=== PATIENT | female | born 1965 | race Caucasian/White ===

== ENCOUNTER 2018-08-09 07:45 | Inpatient (IN) ==
[2018-08-09] MEDS ORDERED: IOPAMIDOL 100 ML BOTTLE IV ONE (07:46)
[2018-08-09] MEDS ORDERED: 0.9 % SODIUM CHLORIDE 1,000 ML IV ONE (08:07)
--- NOTE | 2018-08-09 08:17 | Emergency Department Note ---
Abdominal Pain HPI - General Chief Complaint: Abdominal Pain Stated Complaint: right lower abd pain. Time Seen by Provider: 08/09/18 08:04 Source: patient Mode of arrival: ambulatory Limitations: no limitations - History of Present Illness HPI Narrative: 53-year-old female complains of 3 days of right lower quadrant pain. She has irregular bowel movements but she had a normal bowel movements morning. No difficulty urinating or with shortness of breath. No fever. Pain is severe at times and worse when she walks. Even when she goes over a bump in the car it is worse - Related Data Home Medications Medication Instructions Recorded Confirmed No Known Home Meds 08/09/18 08/09/18 Allergies Allergy/AdvReac Type Severity Reaction Status Date / Time No Known Drug Allergies Allergy Verified 08/09/18 07:48 Review of Systems All systems ED: reviewed and negative except as stated. Abdominal Pain PMH - Past Medical History Attestation: Yes: The following information was validated with the patient. [facility] Narrative: Medical History (Last Reviewed 06/11/18 @ 11:40 by Katrina Willis PA-C) Acute frontal sinusitis (Acute) Acute bronchitis (Acute) Polyarthralgia (Acute) Myalgia (Acute) MICHAEL positive (Acute) Vitamin B12 deficiency (Chronic) Osteoarthritis (Chronic) Morbid obesity (Acute) Gastroesophageal reflux (Chronic) Dysmetabolic syndrome X (Chronic) Benign neoplasm of colon (Chronic) Past Surgical History (Last Reviewed 06/11/18 @ 11:40 by Katrina Willis PA-C) Hx of plastic surgery (Acute) History of loop electrical excision procedure (LEEP) (Acute) Hx of gastric bypass (Acute) Hx of section (Acute) Hx of breast augmentation (Acute) Family History (Last Reviewed 06/11/18 @ 11:40 by Katrina Willis PA-C) none listed Asthma Malignant neoplasm of colon father History of coronary artery bypass surgery Diabetes mellitus mother Diabetes mellitus Malignant neoplasm of pancreas Medical history: Reports: GERD Surgical history ED: Reports: bariatric surgery - Social History Smoking status: Never smoker Physical Exam Normocephalic atraumatic. Conjunctive are clear sclerae nonicteric. No nasal discharge or congestion. Oropharynx pink and moist. Neck is supple without lymphadenopathy or thyromegaly. Heart is regular rate and rhythm no murmur appreciated. Lungs are clear to auscultation bilaterally without wheezes rales rhonchi or respiratory distress. Abdomen is soft nontender nondistended except for right lower quadrant with point tenderness at McBurney's point. Alert oriented Limitations: no limitations Course Vital Signs Temperature 97.9 F 08/09/18 07:45 Pulse Rate 109 H 08/09/18 07:45 Respiratory Rate 20 08/09/18 07:45 Blood Pressure 121/81 08/09/18 07:45 Pulse Oximetry (%) 99 08/09/18 07:45 Temperature 97.9 F 08/09/18 07:45 Pulse Rate 109 H 08/09/18 07:45 Respiratory Rate 20 08/09/18 07:45 Blood Pressure 121/81 08/09/18 07:45 Pulse Oximetry (%) 99 08/09/18 07:45 Abdominal Pain - Lab Data Result diagrams: 08/09/18 08:06 08/09/18 08:06 Lab Results 08/09/18 Range/Units 08:06 Band Neutrophils % Not Reportable Disposition Pt seen by VBA DEVELOPER/PA only: No Summary: Patient seen and examined workup started with labs and CT scan of the abdomen and pelvis. Suspect appendicitis Patient will be checked out to Dr. guardado at shift change for further evaluation and care and final disposition Disposition: Still a Patient Condition: Fair Referrals: Rufus Arellano MD [Primary Care Provider] -
[2018-08-09 08:43] LABS: Mean Cell Volume 84.6 fL (80.0-100.0); Mean Corpuscular HGB Conc 31.8 g/dL (31.0-36.0); Platelet Count 271 K/mcL (140-440); RBC 5.02 M/mcL (4.00-5.20); Red Cell Distribution Width 19.4 % (11.5-14.5)
[2018-08-09 08:55] LABS: Appearance,Urine HAZY; Bacteria,Urine 0 /hpf (0); Bilirubin,Urine NEG (NEG); Color,Urine YELLOW; Glucose,Urine (UA) NEGATIVE (NEG); Leukocyte Esterase,Urine NEG /uL (NEG); Mucus,Urine MOD /hpf (0); Protein,Urine NEG (NEG); Specific Gravity,Urine 1.018 (1.000-1.035); Urine Blood NEG mg/dL (<0.03); Urine Hyaline Cast 77 /lpf (0-2); Urine RBC 1 /hpf (0-1); Urine Squamous Epithelial Cell 3 /hpf (0-4); Urine WBC 2 /hpf (0-4); Urobilinogen,Urine NEG (NEG)
[2018-08-09 09:05] LABS: ALT/SGPT 15 U/l (0-40); Albumin/Globulin Ratio 1.2 (1.0-2.3); Alkaline Phosphatase 101 U/L (39-117); Blood Urea Nitrogen 6 mg/dl (6-20)
[2018-08-09 09:30] LABS: Anisocytosis 1+ (NONE SEEN); Eosinophils % (Manual) 2 % (0-7); Lymphocytes % 15 % (15-49); Monocytes % (Manual) 9 % (1-12); Platelet Estimate NORMAL (NORMAL); RBC Morphology ABNORM (NORMAL); Segmented Neutrophils % 74 % (38-78)
[2018-08-09] MEDS ORDERED: HYDROmorphone 2 MG/ML VIAL IV PRN ×2 (09:42→15:55)
[2018-08-09] MEDS ORDERED: ONDANSETRON 4 MG/2 ML VIAL IV ONE ×2 (09:42→13:35)
--- NOTE | 2018-08-09 09:54 | Cat Scan Report ---
CLINICAL INFORMATION: Right lower quadrant pain COMPARISON: Previous examination dated 01/16/2005 TECHNIQUE: Axial images were obtained through the abdomen and pelvis. Sagittally and coronally reformatted images. 90 mL contrast material injected intravenously. Oral contrast material was not given FINDINGS: The appendix is enlarged and measures approximately 17 mm in cross-sectional diameter. There is a stone at the base of the appendix which measures 13 mm. There is a distal appendicolith which measures 11 mm. There is periappendiceal inflammatory change and mild fluid. There is no extraluminal gas. There is no focal abscess. There is no significant fluid within the pelvic cul-de-sac. Appearance is consistent with appendicitis, no definite CT signs of ruptured appendix. Lung bases are negative. No parenchymal infiltrate or mass. No pleural fluid. No pericardial fluid. There is a small hiatal hernia. There are findings consistent with previous hiatal hernia surgery. Patient has undergone previous Destinee-en-Y gastric bypass procedure. There is no mechanical obstruction. No abscess. Liver is negative. No focal intrahepatic mass. Liver contour is smooth. There is no ascites. There are surgical clips in the gallbladder fossa. No dilated bile ducts. Negative pancreas. No pancreatic mass. No peripancreatic abnormality. Negative spleen. There is no splenomegaly. Normal enhancement of splenic and portal veins. Negative adrenal glands. Kidneys are negative. No solid or cystic mass. No hydronephrosis. There is no mechanical small bowel obstruction. There is mild mesenteric adenopathy. There is also mild mesenteric edema centered in the right lower quadrant. Uterus is present. No adnexal mass. No free pelvic fluid. Abdominal aorta is negative. No abdominal aortic aneurysm. Multilevel degenerative disc disease. Severe degenerative disc disease at L3-4. Sacrum and pelvis are negative. Hips are negative. No fracture. IMPRESSION: 1. Acute appendicitis. There is appendiceal dilatation and two appendicoliths. There is periappendiceal inflammatory change. No extraluminal gas or focal abscess. 2. Previous Destinee-en-Y gastric bypass procedure. The exam was performed using radiation dose optimization techniques including, but not limited to, automated exposure control, adjustment of the mA and/or kV according to patient size and use of iterative reconstruction technique. Interpreted and Authenticated by: Sivakumar Georges 08/09/18
[2018-08-09] MEDS ORDERED: PIPERACILLIN SODIUM/TAZOBACTAM 3.375 GM in DEXTROSE 5% IN WATER 50 ML IV ONE (09:57)
--- NOTE | 2018-08-09 09:57 | Emergency Department Note ---
Abdominal Pain HPI - General Chief Complaint: Abdominal Pain Stated Complaint: right lower abd pain. Time Seen by Provider: 08/09/18 08:04 Source: patient Mode of arrival: ambulatory Limitations: no limitations - Related Data Home Medications Medication Instructions Recorded Confirmed No Known Home Meds 08/09/18 08/09/18 Allergies Allergy/AdvReac Type Severity Reaction Status Date / Time No Known Drug Allergies Allergy Verified 08/09/18 07:48 Abdominal Pain PMH - Past Medical History Medical history: Reports: GERD - Social History Smoking status: Never smoker Physical Exam Limitations: no limitations Course Vital Signs Temperature 97.9 F 08/09/18 07:45 Pulse Rate 109 H 08/09/18 07:45 Respiratory Rate 20 08/09/18 07:45 Blood Pressure 121/81 08/09/18 07:45 Pulse Oximetry (%) 99 08/09/18 07:45 Temperature 97.9 F 08/09/18 07:45 Pulse Rate 93 H 08/09/18 08:59 Respiratory Rate 20 08/09/18 08:59 Blood Pressure 123/75 08/09/18 09:02 Pulse Oximetry (%) 98 08/09/18 08:59 Abdominal Pain - MDM Narrative Medical decision making narrative: CT scan shows appendicitis without rupture. We will discussed the case with Dr. Stephen for admission. - Lab Data Lab results reviewed: Yes I reviewed the patient's lab results. Result diagrams: 08/09/18 08:06 08/09/18 08:06 Lab Results 08/09/18 08/09/18 08/09/18 Range/Units 08:06 08:06 08:06 WBC 8.4 (4.5-11.0) K/mcL RBC 5.02 (4.00-5.20) M/mcL Hgb 13.5 (12.0-15.0) g/dL Hct 42.5 (36.0-48.0) % MCV 84.6 (80.0-100.0) fL MCH 26.9 (26.0-34.0) pg MCHC 31.8 (31.0-36.0) g/dL RDW 19.4 H (11.5-14.5) % Plt Count 271 (140-440) K/mcL MPV 7.9 (7.4-10.4) fL Total Counted 100 Seg Neutrophils % 74 (38-78) % Band Neutrophils % Not Reportable Lymphocytes % 15 (15-49) % Monocytes % (Manual) 9 (1-12) % Eosinophils % (Manual) 2 (0-7) % Platelet Estimate Normal (NORMAL) RBC Morphology Abnorm A (NORMAL) Polychromasia 1+ A (NONE SEEN) Anisocytosis 1+ A (NONE SEEN) VBG Lactic Acid 1.5 (0.5-2.0) mmol/L Sodium 141 (133-145) mmol/L Potassium 4.0 (3.3-5.1) mmol/L Chloride 102 (96-108) mmol/L Carbon Dioxide 24 (22-30) mmol/L Anion Gap 15.0 (8-16) BUN 6 (6-20) mg/dl Creatinine 0.8 (0.6-1.1) mg/dl GFR Calculation 84 Glucose 98 (70-105) mg/dL Calcium 9.2 (8.6-10.4) mg/dl Total Bilirubin 0.4 (0.0-1.0) mg/dL AST 15 (0-37) U/l ALT 15 (0-40) U/l Alkaline Phosphatase 101 (39-117) U/L Total Protein 7.4 (5.9-8.4) gm/dL Albumin 4.0 (3.2-5.2) gm/dL Globulin 3.4 (2.2-3.7) gm/dL Albumin/Globulin Ratio 1.2 (1.0-2.3) Urine Color Urine Appearance Urine pH (5.0-9.0) Ur Specific [place] (1.000-1.035) Urine Protein (NEG) mg/dL Urine Glucose (UA) (NEG) mg/dL Urine Ketones (NEG) mg/dL Urine Occult Blood (<0.03) mg/dL Urine Nitrate (NEG) Urine Bilirubin (NEG) mg/dL Urine Urobilinogen (NEG) mg/dL Ur Leukocyte Esterase (NEG) /uL Urine RBC (0-1) /hpf Urine WBC (0-4) /hpf Ur Squamous Epith Cells (0-4) /hpf Urine Bacteria (0) /hpf Hyaline Casts (0-2) /lpf Urine Mucus (0) /hpf Ur Culture Indicated? 08/09/18 Range/Units 08:06 WBC (4.5-11.0) K/mcL RBC (4.00-5.20) M/mcL Hgb (12.0-15.0) g/dL Hct (36.0-48.0) % MCV (80.0-100.0) fL MCH (26.0-34.0) pg MCHC (31.0-36.0) g/dL RDW (11.5-14.5) % Plt Count (140-440) K/mcL MPV (7.4-10.4) fL Total Counted Seg Neutrophils % (38-78) % Band Neutrophils % Lymphocytes % (15-49) % Monocytes % (Manual) (1-12) % Eosinophils % (Manual) (0-7) % Platelet Estimate (NORMAL) RBC Morphology (NORMAL) Polychromasia (NONE SEEN) Anisocytosis (NONE SEEN) VBG Lactic Acid (0.5-2.0) mmol/L Sodium (133-145) mmol/L Potassium (3.3-5.1) mmol/L Chloride (96-108) mmol/L Carbon Dioxide (22-30) mmol/L Anion Gap (8-16) BUN (6-20) mg/dl Creatinine (0.6-1.1) mg/dl GFR Calculation Glucose (70-105) mg/dL Calcium (8.6-10.4) mg/dl Total Bilirubin (0.0-1.0) mg/dL AST (0-37) U/l ALT (0-40) U/l Alkaline Phosphatase (39-117) U/L Total Protein (5.9-8.4) gm/dL Albumin (3.2-5.2) gm/dL Globulin (2.2-3.7) gm/dL Albumin/Globulin Ratio (1.0-2.3) Urine Color Yellow Urine Appearance Hazy Urine pH 6.0 (5.0-9.0) Ur Specific [place] 1.018 (1.000-1.035) Urine Protein Neg (NEG) mg/dL Urine Glucose (UA) Negative (NEG) mg/dL Urine Ketones 20 A (NEG) mg/dL Urine Occult Blood Neg (<0.03) mg/dL Urine Nitrate Neg (NEG) Urine Bilirubin Neg (NEG) mg/dL Urine Urobilinogen Neg (NEG) mg/dL Ur Leukocyte Esterase Neg (NEG) /uL Urine RBC 1 (0-1) /hpf Urine WBC 2 (0-4) /hpf Ur Squamous Epith Cells 3 (0-4) /hpf Urine Bacteria 0 (0) /hpf Hyaline Casts 77 H (0-2) /lpf Urine Mucus Mod (0) /hpf Ur Culture Indicated? No - Radiology Data Radiology results reviewed: Yes I reviewed the patient's radiology results. Disposition Pt seen by OIL DISPENSER/PA only: No Clinical Impression: Acute appendicitis Disposition: Xfer As Outpt/Obs ([facility]) Condition: Good Referrals: Rufus Arellano MD [Primary Care Provider] - Time of Disposition: 09:57
[2018-08-09] MEDS ORDERED: SCOPOLAMINE 1 PATCH PATCH TOPICAL ONE (10:16)
--- NOTE | 2018-08-09 12:18 | General Surg History&Physical ---
History of Present Illness Patient information: Note initiated : 08/09/18 at 12:16 pm Service Date, if different from initiated Date: [] Patient: Marie Arredondo a 53 y/o F admitted on 08/09/18 for Right Lower Abd Pain.. Chief Complaint: [] HPI: Ms. Arredondo is a 53 year old F admitted with right lower quadrant pain. The p atient had pain in the right lower quadrant that started on Friday. It persisted throughout yesterday and increased in severity. She was seen in the emergency room today and was noted to have leukocytosis and CT evidence of acute appendicitis with 2 appendicoliths. Patient is counseled for laparoscopic appendectomy and it will be done later today Review of Systems - Constitutional headache(s), snoring, weakness, weight loss - EENT Nose, mouth and throat: dizziness, headache(s), post-nasal drip, sinus pain, sinus pressure - Cardiovascular no chest pain with activity, no dyspnea on exertion, no palpatations, no rapid heart rate, no syncope - Respiratory cough - Gastrointestinal abdominal pain, heartburn, nausea - Genitourinary Genitourinary: no nocturia, no urinary frequency, no urinary incontinence - Musculoskeletal back pain, neck pain, stiffness - Integumentary no pruritus, no rash - Neurological headache(s), tingling, weakness - Psychiatric no anxiety, no depression - Endocrine no excessive sweating, no palpitations - Hematologic/Lymphatic no easy bleeding, no easy bruising, no lymphadenopathy - Allergic/Immunologic no throat swelling, no wheezing, no lip swelling Past History Past medical history: GERD Chronic sinusitis Inflammatory arthritis Past surgical history: Abdominoplasty with bilateral reduction mammoplasty and liposuction Gastric bypass 2004 Cholecystectomy Left shoulder surgery Past family history: Colon cancer Diabetes mellitus Coronary artery disease Diabetes mellitus Pancreatic cancer Past social history: Never smoker Does not drink alcohol Does not use drugs Medications and Allergies Home Medications Medication Instructions Recorded Confirmed Type No Known Home Meds 08/09/18 08/09/18 History Allergies Allergy/AdvReac Type Severity Reaction Status Date / Time No Known Drug Allergies Allergy Verified 08/09/18 07:48 Exam Temp Pulse Resp BP Pulse Ox 98 F 95 H 18 111/70 97 08/09/18 11:37 08/09/18 11:01 08/09/18 11:37 08/09/18 11:37 08/09/18 11:37 - General physical appearance well developed, well nourished, no distress - Eyes PERRL, normal ocular movement - ENT normal pinna, normal nares, normal mucosa, no hearing loss, no congestion - Head Head exam IM: Present: atraumatic, normocephalic - Neck no masses, no bruits, trachea midline, no lymphadenopathy, no venous distension - Cardiovascular Cardiovascular exam IM: Present: normal rate and rhythm, RRR, +S1, +S2. Absent: JVD, tachycardia - Respiratory normal expansion, normal respiratory effort, clear to auscultation - Abdomen Abdomen: Present: soft, non tender, bowel sounds, surgical scars (long midline scar; Extended lower suprapubic scar; tenderness with guarding right lower quadrant), wound Hernia: Present: none - Genitourinary Present: normal external genitalia - Integumentary Present: no rash, no growths, no abnormal pigmentation - Neurologic Present: normal coordination, normal sensation - Musculoskeletal Present: normal gait, normal posture - Psychiatric Present: oriented to time, oriented to person, oriented to place, speech is normal, memory intact Assessment and Plan (1) Acute appendicitis Patient is counseled for laparoscopic appendectomy which will be done later today Status: Acute (2) Maxillary sinusitis Status: Acute Qualifiers: Chronicity: acute Recurrence: non-recurrent Qualified Code(s): J01.00 - Acute maxillary sinusitis, unspecified (3) Polyarthralgia Status: Acute
--- NOTE | 2018-08-09 13:10 | XRay Report ---
CLINICAL INFORMATION: Appendicitis. Preoperative chest x-ray. TECHNIQUE: AP portable semiupright COMPARISON: Previous examination dated 07/07/2013 FINDINGS: Lungs are negative. No foraminal infiltrate or mass. Heart size and vascularity are normal. Aylin and mediastinum are negative IMPRESSION: Negative AP chest x-ray Interpreted and Authenticated by: Sivakumar Georges 08/09/18
[2018-08-09] MEDS ORDERED: ROCURONIUM 10 MG/ML ML IV ONE (13:35)
[2018-08-09] MEDS ORDERED: KETAMINE 100 MG/ML ML IV ONE (13:35)
[2018-08-09] MEDS ORDERED: diphenhydrAMINE 50 MG/ML VIAL IV ONE (13:35)
[2018-08-09] MEDS ORDERED: GLYCOPYRROLATE 0.2 MG/ML VIAL IV ONE (13:35)
[2018-08-09] MEDS ORDERED: ESMOLOL 100 MG/10 ML VIAL IV ONE (13:35)
[2018-08-09] MEDS ORDERED: HYDROmorphone 2 MG/ML VIAL IV ONE (13:35)
[2018-08-09] MEDS ORDERED: MIDAZOLAM 5 MG/5 ML VIAL IV ONE (13:35)
[2018-08-09] MEDS ORDERED: SUGAMMADEX SODIUM 200 MG/2 ML VIAL IV ONE (13:35)
[2018-08-09] MEDS ORDERED: LIDOCAINE HCL/PF 100 MG/5 ML SYRINGE IV ONE (13:35)
[2018-08-09] MEDS ORDERED: DEXAMETHASONE 10 MG/ML VIAL IV ONE (13:35)
[2018-08-09] MEDS ORDERED: SUCCINYLCHOLINE 20 MG/ML ML IV ONE (13:35)
[2018-08-09] MEDS ORDERED: fentaNYL 250 MCG/5 ML VIAL IV ONE (13:35)
[2018-08-09] MEDS ORDERED: FAMOTIDINE/PF 20 MG/2 ML VIAL IV ONE (13:35)
[2018-08-09] MEDS ORDERED: PROPOFOL 200 MG/20 ML VIAL IV ONE (13:35)
--- NOTE | 2018-08-09 15:47 | Brief Operative Note ---
Date of procedure: 08/09/18 Pre-op diagnosis: acute appendicitis Post-op diagnosis: other (acute appendicitis with perforation) Procedure: open appendectomy Grafts/Implants: No (jpx1) Anesthesia: GETA Findings: acute gangrenous appendix with perforation at the base and severe inflammation of gino appendiceal cecal tissue;2 large fecaliths Complications: none Surgeon: Torito Stephen Estimated blood loss (cc): 10 Specimens Removed/Pathology: other (appendix) Condition: stable Disposition: PACU
[2018-08-09] MEDS ORDERED: MEPERIDINE 25 MG/ML SYRINGE IV PRN (15:55)
[2018-08-09] MEDS ORDERED: ONDANSETRON 4 MG/2 ML VIAL IV PRN (15:55)
[2018-08-09] MEDS ORDERED: MEPERIDINE 50 MG/ML INJECTION IM PRN (15:55)
[2018-08-09] MEDS ORDERED: METHOCARBAMOL 1,000 MG/10 ML VIAL IV PRN (15:55)
[2018-08-09] MEDS ORDERED: ACETAMINOPHEN 1,000 MG/100 ML BOTTLE IV ONE (15:55)
[2018-08-09] MEDS ORDERED: KETOROLAC 30 MG/ML VIAL IV PRN (15:55)
[2018-08-09] MEDS ORDERED: BENZOCAINE/MENTHOL 1 LOZENGE PO PRN (15:55)
[2018-08-09] MEDS ORDERED: PROMETHAZINE 25 MG/ML VIAL IM PRN (15:55)
[2018-08-09] MEDS ORDERED: FLUMAZENIL 0.1 MG/ML ML IV PRN (15:55)
[2018-08-09] MEDS ORDERED: LACTATED RINGERS 250 ML IV PRN (15:55)
[2018-08-09] MEDS ORDERED: NALOXONE HCL 0.4 MG/ML VIAL IV PRN (15:55)
[2018-08-09] MEDS ORDERED: fentaNYL 100 MCG/2 ML VIAL IV PRN (15:55)
[2018-08-09] MEDS ORDERED: IPRATROPIUM/ALBUTEROL 3 ML AMPUL.NEB NEB PRN (15:55)
[2018-08-09] MEDS ORDERED: LACTATED RINGERS 1,000 ML IV SCH (16:00)
[2018-08-09] MEDS ORDERED: PROMETHAZINE 25 MG/ML VIAL IV ONE (16:24)
[2018-08-09] MEDS ORDERED: PROMETHAZINE 25 MG/ML VIAL ONE (16:27)
[2018-08-09] MEDS ORDERED: PROMETHAZINE 25 MG/ML VIAL IV PRN (16:36)
[2018-08-09] MEDS ORDERED: HYDROmorphone 2 MG/ML VIAL ONE (17:14)
[2018-08-09] MEDS: 0.9 % SODIUM CHLORIDE 1,000 ML IV SCH (17:19)
[2018-08-09] MEDS: METOCLOPRAMIDE 10 MG/2 ML VIAL IV SCH ×2 (18:56→23:31)
[2018-08-09] MEDS: PANTOPRAZOLE 40 MG VIAL IV SCH (18:56)
[2018-08-09] MEDS: PIPERACILLIN SODIUM/TAZOBACTAM 3.375 GM in DEXTROSE 5% IN WATER 50 ML IV SCH ×2 (19:07→23:31)
[2018-08-09] MEDS: HYDROmorphone 2 MG/ML VIAL IV PRN (21:33)
[2018-08-09] MEDS: ACETAMINOPHEN 1,000 MG in PREMIX 1 BAG IV SCH (21:40)
[2018-08-09] MEDS: 0.9 % SODIUM CHLORIDE 10 ML SYRINGE IV SCH (23:30)
[2018-08-10] MEDS: 0.9 % SODIUM CHLORIDE 1,000 ML IV SCH ×5 (03:08→21:32)
[2018-08-10] MEDS ORDERED: ACETAMINOPHEN 1,000 MG/100 ML BOTTLE IV ONE ×3 (03:33→16:52)
[2018-08-10] MEDS: ACETAMINOPHEN 1,000 MG in PREMIX 1 BAG IV SCH ×3 (03:36→17:12)
[2018-08-10] MEDS: HYDROmorphone 2 MG/ML VIAL IV PRN ×5 (06:24→22:22)
[2018-08-10] MEDS: METOCLOPRAMIDE 10 MG/2 ML VIAL IV SCH ×3 (06:24→17:58)
[2018-08-10] MEDS: PIPERACILLIN SODIUM/TAZOBACTAM 3.375 GM in DEXTROSE 5% IN WATER 50 ML IV SCH ×3 (06:25→17:05)
[2018-08-10] MEDS: ONDANSETRON 4 MG/2 ML VIAL IV PRN (06:37)
[2018-08-10] MEDS: 0.9 % SODIUM CHLORIDE 10 ML SYRINGE IV SCH ×2 (06:38→14:00)
[2018-08-10] MEDS: PANTOPRAZOLE 40 MG VIAL IV SCH ×2 (08:07→17:03)
[2018-08-10] MEDS: ENOXAPARIN 30 MG/0.3 ML SYRINGE SQ SCH (10:03)
--- NOTE | 2018-08-10 18:01 | General Surgery Progress Note ---
Subjective Patient reports: feels better, still having pain, tolerating liquids well, no flatus, no bowel movement, afebrile Narrative: Note initiated : 08/10/18 at 6:00 pm Service Date, if different from initiated Date: [] Patient: Marie Arredondo 53 y/o F admitted on 08/09/18 for Right Lower Abd Pain.. Chief Complaint: [patient is stable except for abdominal pain. She has not had flatus. She denies nausea. She has moderate amount of bloody drainage from her ASHLEY. I was able to answer questions concerning her operation and the need to convert from laparoscopic to open.] Objective Temp Pulse Resp BP Pulse Ox 97.8 F 87 18 101/65 96 08/10/18 12:07 08/10/18 03:02 08/10/18 12:07 08/10/18 12:07 08/10/18 12:07 - Additional Data Intake & Output - Last 24 hours: Intake & Output 08/08/18 08/09/18 08/10/18 08/11/18 05:59 05:59 05:59 05:59 Intake Total 5900 2350 Output Total 1851 200 Balance 4049 2150 Weight 300 lb 12.8 oz 300 lb 12.8 oz - General physical appearance well developed, well nourished, no distress, moderate pain - Eyes PERRL, normal ocular movement - ENT normal pinna, normal nares, normal mucosa, no hearing loss, no congestion - Neck no masses, no bruits, trachea midline, no lymphadenopathy, no venous distension - Respiratory normal expansion, normal respiratory effort, clear to auscultation - Cardiovascular Cardiovascular exam: Present: normal rate and rhythm, RRR, +S1, +S2. Absent: JVD, tachycardia - Abdomen tender ( moderate incisional tenderness), bowel sounds (hypoactive bowel sounds), surgical scars (none), masses (none) - Integumentary no rash, no growths, no abnormal pigmentation - Neurologic normal coordination, normal sensation - Musculoskeletal normal gait, normal posture - Psychiatric oriented to time, oriented to person, oriented to place, speech is normal, memory intact - Labs 08/09/18 08:06 08/09/18 08:06 Assessment and Plan (1) Acute appendicitis Status: Acute Assessment and plan: Continue IV antibiotics Delay advancing diet Current Visit: Yes (2) Maxillary sinusitis Status: Acute Current Visit: No (3) Polyarthralgia Status: Acute Current Visit: No - Time Spent With Patient Total time spent is greater than 50% in coordination of care (as documented) at patient's floor/unit and/or counseling patient:
[2018-08-11] MEDS: 0.9 % SODIUM CHLORIDE 10 ML SYRINGE IV SCH ×4 (00:08→21:15)
[2018-08-11] MEDS: METOCLOPRAMIDE 10 MG/2 ML VIAL IV SCH ×4 (00:09→17:49)
[2018-08-11] MEDS: PIPERACILLIN SODIUM/TAZOBACTAM 3.375 GM in DEXTROSE 5% IN WATER 50 ML IV SCH ×5 (00:09→23:56)
[2018-08-11] MEDS: ONDANSETRON 4 MG/2 ML VIAL IV PRN ×3 (02:33→14:22)
[2018-08-11] MEDS ORDERED: tiZANidine 4 MG TABLET PO PRN ×2 (02:33→03:21)
[2018-08-11] MEDS ORDERED: HYDROcodone/APAP 10/325MG TABLET PO ONE ×2 (02:56→05:10)
[2018-08-11] MEDS: HYDROcodone/APAP 10/325MG TABLET PO PRN ×5 (02:58→19:14)
[2018-08-11] MEDS: tiZANidine 4 MG TABLET PO PRN ×4 (05:13→19:14)
[2018-08-11] MEDS: 0.9 % SODIUM CHLORIDE 1,000 ML IV SCH ×3 (05:14→17:48)
[2018-08-11 06:57] LABS: Basophils # (Auto) 0 K/mcL (0.0-0.3); Basophils % (Auto) 0.1 % (0.0-2.0); Eosinophils # (Auto) 0 K/mcL (0.0-0.7); Eosinophils % (Auto) 0.1 % (0.0-7.0); Granulocytes % (Auto) 80.8 % (38.0-78.0); Lymphocytes # (Auto) 0.8 K/mcL (1.5-4.8); Mean Cell Volume 85.5 fL (80.0-100.0); Mean Corpuscular HGB Conc 31.8 g/dL (31.0-36.0); Monocytes # (Auto) 0.7 K/mcL (0.1-0.9); Platelet Count 216 K/mcL (140-440); RBC 3.91 M/mcL (4.00-5.20); Red Cell Distribution Width 19.5 % (11.5-14.5)
[2018-08-11 07:26] LABS: ALT/SGPT 29 U/l (0-40); Albumin/Globulin Ratio 1.1 (1.0-2.3); Alkaline Phosphatase 76 U/L (39-117); Bilirubin,Direct < 0.2 mg/dL (0.0-0.3); Blood Urea Nitrogen 4 mg/dl (6-20); Gamma Glutamyl Transpeptidase 18 U/L (5-36)
[2018-08-11] MEDS: PANTOPRAZOLE 40 MG VIAL IV SCH ×2 (07:59→16:32)
[2018-08-11] MEDS: HYDROmorphone 2 MG/ML VIAL IV PRN ×4 (08:08→22:55)
[2018-08-11] MEDS: ENOXAPARIN 30 MG/0.3 ML SYRINGE SQ SCH (10:02)
--- NOTE | 2018-08-11 10:42 | Surgical Pathology Report ---
HISTOLOGY SPECIMEN MICROSCOPIC DIAGNOSIS APPENDIX, APPENDECTOMY: -- ACUTE APPENDICITIS WITH SEROSITIS. -- FIBROUS ABLATION OF THE APPENDICEAL TIP. (DMT:charles) CLINICAL HISTORY Right lower abdominal pain. PROCEDURAL IMPRESSION Acute appendicitis. GROSS DESCRIPTION Received in formalin labeled appendix, is a 6 cm long by up to 1.2 cm in diameter purple-bonilla appendix with 3 cm of attached yellow-bonilla adipose tissue at the proximal end. There is thickened white-bonilla possible exudate on the surface. There is a strictured area near the tip. The lumen contains soft yellow-bonilla fecal material and a 1 cm fecalith. [employer] sections submitted - two cassettes. (STS:charles) Electronically Signed by: Papa Peguero M.D.
--- NOTE | 2018-08-11 18:13 | General Surgery Progress Note ---
Subjective Patient reports: feels better, pain is less, tolerating liquids well, flatus, no bowel movement, afebrile Narrative: Note initiated : 08/11/18 at 6:12 pm Service Date, if different from initiated Date: [] Patient: Marie Arredondo 53 y/o F admitted on 08/09/18 for Right Lower Abd Pain.. Chief Complaint: [patient is doing well. Her pain is controlled. She denies nausea. She is tolerating a diet and is having flatus. She is afebrile.] Objective Temp Pulse Resp BP Pulse Ox 97.5 F 85 16 97/68 94 08/11/18 14:09 08/11/18 14:09 08/11/18 14:09 08/11/18 14:09 08/11/18 14:09 - Additional Data Intake & Output - Last 24 hours: Intake & Output 08/09/18 08/10/18 08/11/18 08/12/18 05:59 05:59 05:59 05:59 Intake Total 5900 5663 2100 Output Total 1851 1445 670 Balance 4049 4218 1430 Weight 300 lb 12.8 oz 311 lb - General physical appearance well developed, well nourished, no distress, moderate pain - Eyes PERRL, normal ocular movement - ENT normal pinna, normal nares, normal mucosa, no hearing loss, no congestion - Neck no masses, no bruits, trachea midline, no lymphadenopathy, no venous distension - Respiratory normal expansion, normal respiratory effort, clear to auscultation - Cardiovascular Cardiovascular exam: Present: normal rate and rhythm, RRR, +S1, +S2. Absent: JVD, tachycardia - Abdomen tender (mild incisional tenderness; good active bowel sounds; serosanguineous ASHLEY drainage) - Integumentary no rash, no growths, no abnormal pigmentation - Neurologic normal coordination, normal sensation - Musculoskeletal normal gait, normal posture - Psychiatric oriented to time, oriented to person, oriented to place, speech is normal, memory intact - Labs 08/12/18 04:58 08/12/18 04:58 Diabetes panel 08/11/18 Range/Units 05:29 Sodium 137 (133-145) mmol/L Potassium 4.0 (3.3-5.1) mmol/L Chloride 104 (96-108) mmol/L Carbon Dioxide 23 (22-30) mmol/L BUN 4 L (6-20) mg/dl Creatinine 0.5 L (0.6-1.1) mg/dl Glucose 113 H (70-105) mg/dL Calcium 8.1 L (8.6-10.4) mg/dl AST 27 (0-37) U/l ALT 29 (0-40) U/l Alkaline Phosphatase 76 (39-117) U/L Total Protein 5.8 L (5.9-8.4) gm/dL Albumin 3.0 L (3.2-5.2) gm/dL Triglycerides 77 (<150) mg/dl Calcium panel 08/11/18 Range/Units 05:29 Calcium 8.1 L (8.6-10.4) mg/dl Phosphorus 2.5 L (2.7-4.5) mg/dL Albumin 3.0 L (3.2-5.2) gm/dL Pituitary panel 08/11/18 Range/Units 05:29 Sodium 137 (133-145) mmol/L Potassium 4.0 (3.3-5.1) mmol/L Chloride 104 (96-108) mmol/L Carbon Dioxide 23 (22-30) mmol/L BUN 4 L (6-20) mg/dl Creatinine 0.5 L (0.6-1.1) mg/dl Glucose 113 H (70-105) mg/dL Calcium 8.1 L (8.6-10.4) mg/dl Adrenal panel 08/11/18 Range/Units 05:29 Sodium 137 (133-145) mmol/L Potassium 4.0 (3.3-5.1) mmol/L Chloride 104 (96-108) mmol/L Carbon Dioxide 23 (22-30) mmol/L BUN 4 L (6-20) mg/dl Creatinine 0.5 L (0.6-1.1) mg/dl Glucose 113 H (70-105) mg/dL Calcium 8.1 L (8.6-10.4) mg/dl Total Bilirubin 0.3 (0.0-1.0) mg/dL AST 27 (0-37) U/l ALT 29 (0-40) U/l Alkaline Phosphatase 76 (39-117) U/L Total Protein 5.8 L (5.9-8.4) gm/dL Albumin 3.0 L (3.2-5.2) gm/dL Assessment and Plan (1) Acute appendicitis Status: Acute Assessment and plan: Continue IV antibiotics Check labs in the morning Possible discharge tomorrow Current Visit: Yes (2) Maxillary sinusitis Status: Acute Current Visit: No (3) Polyarthralgia Status: Acute Current Visit: No - Time Spent With Patient Total time spent is greater than 50% in coordination of care (as documented) at patient's floor/unit and/or counseling patient:
[2018-08-12] MEDS: tiZANidine 4 MG TABLET PO PRN ×5 (00:02→17:42)
[2018-08-12] MEDS: HYDROcodone/APAP 10/325MG TABLET PO PRN ×5 (00:02→17:42)
[2018-08-12] MEDS: METOCLOPRAMIDE 10 MG/2 ML VIAL IV SCH ×4 (00:09→17:43)
[2018-08-12] MEDS: 0.9 % SODIUM CHLORIDE 1,000 ML IV SCH ×3 (00:14→10:43)
[2018-08-12] MEDS: HYDROmorphone 2 MG/ML VIAL IV PRN (03:29)
[2018-08-12] MEDS: PIPERACILLIN SODIUM/TAZOBACTAM 3.375 GM in DEXTROSE 5% IN WATER 50 ML IV SCH ×2 (05:42→11:57)
[2018-08-12] MEDS: 0.9 % SODIUM CHLORIDE 10 ML SYRINGE IV SCH ×2 (05:43→13:45)
[2018-08-12 06:32] LABS: Basophils # (Auto) 0 K/mcL (0.0-0.3); Basophils % (Auto) 0.3 % (0.0-2.0); Eosinophils # (Auto) 0.1 K/mcL (0.0-0.7); Eosinophils % (Auto) 1.3 % (0.0-7.0); Granulocytes % (Auto) 74.3 % (38.0-78.0); Lymphocytes % (Auto) 13.9 % (15.5-49.0); Mean Cell Volume 86.2 fL (80.0-100.0); Mean Corpuscular HGB Conc 31.9 g/dL (31.0-36.0); Monocytes # (Auto) 0.8 K/mcL (0.1-0.9); Monocytes % (Auto) 10.2 % (1.0-12.0); Platelet Count 268 K/mcL (140-440); Red Cell Distribution Width 19.3 % (11.5-14.5)
[2018-08-12 07:13] LABS: ALT/SGPT 31 U/l (0-40); Albumin 3.1 gm/dL (3.2-5.2); Albumin/Globulin Ratio 0.9 (1.0-2.3); Alkaline Phosphatase 86 U/L (39-117); Bilirubin,Direct < 0.2 mg/dL (0.0-0.3); Blood Urea Nitrogen 5 mg/dl (6-20); Gamma Glutamyl Transpeptidase 23 U/L (5-36)
[2018-08-12] MEDS: PANTOPRAZOLE 40 MG VIAL IV SCH ×2 (08:00→17:43)
[2018-08-12] MEDS: ENOXAPARIN 30 MG/0.3 ML SYRINGE SQ SCH (08:41)
[2018-08-12] MEDS: ONDANSETRON 4 MG/2 ML VIAL IV PRN (09:50)
--- NOTE | 2018-08-12 13:00 | Operative Note ---
DATE OF OPERATION: 08/09/2018 PREOPERATIVE DIAGNOSIS: Acute appendicitis. POSTOPERATIVE DIAGNOSIS: Acute appendicitis with perforation. PROCEDURE: Open appendectomy. SURGEON: Torito Stephen MD FINDINGS: 1. Acute gangrenous appendix with perforation at the base and severe inflammation of the periappendiceal tissue, including the base of the cecum. 2. Large fecalith. DESCRIPTION OF PROCEDURE: Under general anesthesia, the patient's abdomen was prepped and draped in a sterile field. Supraumbilical incision was made and Veress needle was inserted uneventfully. The abdomen was insufflated with 3 liters of CO2. A 12 mm port was placed and laparoscope was placed. Under videoscopic guidance, a 5 mm port was placed in the suprapubic midline and a 12 mm port in the left lower quadrant. The patient was placed in deep Trendelenburg position and rotated to the left. The cecum was mobilized from the lateral wall, and at the base of the cecum there was a severely inflamed, bulbous, gangrenous-appearing appendix with free perforation at the base. The base appeared to be necrotic, and there was large fecalith extending from the base of the cecum. There was free purulence in the right gutter. There was also very hard thickening and induration of the base of the cecum in the periappendiceal area. There was some concern that this might be neoplastic because of the volume of thickened, hard tissue. Because of this, it was elected to open. The upper midline supraumbilical incision was extended caudad and extended to the lower port in the suprapubic midline. The abdomen was opened and the cecum was mobilized. Copious irrigation of the ___ developed an abscess in the right gutter. It was irrigated and packed with sponges. Inspection of the base of the appendix revealed it to indeed be necrotic, and there were extensive inflammatory changes that extended into the wall of cecum. I tried to staple the base of the appendix, but the necrotic tissue would not hold geoff. This was excised and passed off as specimen. Debridement of the inflamed tissue was carried out with Metzenbaum scissors until the appendiceal opening could be easily identified. The opening was then closed using multiple sutures of inverted 2-0 Vicryl sutures interrupted. Part of the mesoappendix was still in place, and it was decided to use this as a flap to function as a patch over the appendiceal opening. This was sutured in place using interrupted 2-0 Prolene, encompassing the wall of the cecum, as well as the mesoappendix flap. Once this was completed, the outer margins of the mesoappendix flap were sutured to the wall of the cecum using interrupted 3-0 silk. This was felt to be a secure closure supported by the mesoappendix flap. A ASHLEY drain was placed in the right gutter, and the cecum was then placed in anatomic position over the drain. The drain was brought out through a separate stab incision. Sponge, instrument and blade counts were verified as correct. The fascia and peritoneum were closed with interrupted #1 Prolene. Subcutaneous tissue was closed with 2-0 Monocryl. Skin was closed with geoff. Drain was secured with 2-0 nylon. The patient tolerated the procedure well. Tegaderm dressings were placed. The patient was awakened, transferred to a bed, and taken to the postanesthetic care unit in stable, satisfactory condition. LCS:burton Job ID: [id number] Doc ID: [id number] Torito Stephen M.D.
--- NOTE | 2018-08-12 14:27 | Discharge Summary ---
Providers - Providers Patient information: Note initiated : 08/12/18 at 2:26 pm Service Date, if different from initiated Date: [] Patient: Marie Arredondo 53 y/o F admitted on 08/09/18 for Right Lower Abd Pain.. Chief Complaint: [] Date of admission: 08/09/18 Discharge date: 08/12/18 Attending physician: Torito tSephen Hospitalization Hospital course: 53-year-old female admitted with a three-day history of right lower quadrant abdominal pain with nausea. When seen in the emergency room she had evidence of acute appendicitis with 2 appendicoliths. She was explored laparoscopically and was found to have perforation of the appendix at the base with marked induration and thickening of the cecum. Because of inability to determine the source of the severe thickening and mass effect of the cecum she was explored open. She was found to have free perforation with abscess formation in the right gutter and severe necrosis of the base of the appendix. These sacral opening was closed in layers using initially interrupted 3-0 Vicryl followed by 2-0 Prolene and covered with a mesoappendix patch that was sutured in place with Prolene and 3 -0 silk. Her pelvis was drained and she has been treated with IV antibiotics. Her white blood count has returned to normal so she will be discharged home on Cipro twice a day for 7 days. Discharge diagnosis: acute appendicitis with perforation and abscess Reason for admission: abdominal pain nausea vomiting and appendicitis Procedures: Open appendectomy with drainage of pelvic Abscess Pertinent studies/significant findings: CT of abdomen and pelvis with contrast Complications: None Exam Temp Pulse Resp BP Pulse Ox 97.6 F 86 16 107/63 97 08/12/18 13:49 08/12/18 13:49 08/12/18 13:49 08/12/18 13:49 08/12/18 13:49 - General physical appearance well developed, well nourished, no distress - Eyes PERRL, normal ocular movement - ENT normal pinna, normal nares, normal mucosa, no hearing loss, no congestion - Head Head exam IM: Present: atraumatic, normocephalic - Neck no masses, no bruits, trachea midline, no lymphadenopathy, no venous distension - Cardiovascular Cardiovascular exam IM: Present: normal rate and rhythm - Respiratory normal expansion, normal respiratory effort, clear to percussion, clear to auscultation - Abdomen Abdomen: Present: soft, tender, bowel sounds Hernia: Present: none - Genitourinary Present: normal external genitalia - Integumentary Present: no rash, no growths, no abnormal pigmentation - Neurologic Present: normal coordination, normal sensation - Musculoskeletal Present: normal gait, normal posture - Psychiatric Present: oriented to time, oriented to person, oriented to place, speech is normal, memory intact Discharge Plan - Patient/Caregiver Discharge Instructions Activity: increase activity as tolerated, other (rolling walker for assisted ambulation) Diet: Regular Diet Prescriptions: Butalb/Acetaminophen/Caffeine [Fioricet 50-300-40 mg Capsule] 1 - 2 tab PO Q4H #30 cap Ciprofloxacin [Cipro] 500 mg PO BID #20 tab RX: HYDROcodone/APAP 10/325MG [Ducor 10-325Mg] 1 tab PO Q4H PRN #42 tab PRN Reason: Pain - Follow up Plan Follow up with: Torito Stephen MD [Physician] - 08/27/18 9:45 am Rufus Arellano MD [Primary Care Provider] - Disposition: Home, Self-Care Prognosis: Good Rehab Potential: Good I certify that the patient requires SNF services.: No Overall status at discharge: patient is progressing back to baseline (a rolling walker wheel walker) Pending Studies Resuscitation Status Full Code Diet Regular Diet Start FriAug 12 1719 Hydrocodone Bitart/Acetaminophen (Ducor 10/325mg) 0.5 tab PO Q4HP PRN PRN Reason: PAIN LEVEL 3-6 Last Admin: 08/12/18 09:46 Dose: 0.5 tab Documented by: Admin: 08/12/18 05:42 Dose: 0.5 tab Documented by: Admin: 08/12/18 00:02 Dose: 0.5 tab Documented by: Admin: 08/11/18 19:14 Dose: 0.5 tab Documented by: Admin: 08/11/18 14:20 Dose: 0.5 tab Documented by: Admin: 08/11/18 10:15 Dose: 0.5 tab Documented by: [email or web address] Admin: 08/11/18 05:12 Dose: 0.5 tab Documented by: Admin: 08/11/18 02:58 Dose: 0.5 tab Documented by: LEONA Enoxaparin Sodium (Lovenox) 30 mg SQ DAILY [facility] Last Admin: 08/12/18 08:41 Dose: 30 mg Documented by: Admin: 08/11/18 10:02 Dose: 30 mg Documented by: Admin: 08/10/18 10:03 Dose: 30 mg Documented by: JAMES Hydromorphone HCl (Dilaudid) 1 mg IV Q2HP PRN PRN Reason: PAIN LEVEL > 6 Last Admin: 08/12/18 03:29 Dose: 1 mg Documented by: Admin: 08/11/18 22:55 Dose: 1 mg Documented by: Admin: 08/11/18 16:33 Dose: 1 mg Documented by: Admin: 08/11/18 10:01 Dose: 1 mg Documented by: Admin: 08/11/18 08:08 Dose: 1 mg Documented by: Admin: 08/10/18 22:22 Dose: 1 mg Documented by: Admin: 08/10/18 18:15 Dose: 1 mg Documented by: Admin: 08/10/18 15:02 Dose: 1 mg Documented by: Admin: 08/10/18 10:14 Dose: 1 mg Documented by: Admin: 08/10/18 06:24 Dose: 1 mg Documented by: Admin: 08/09/18 21:33 Dose: 1 mg Documented by: LEONA Sodium Chloride (Sodium Chloride 0.9%) 1,000 mls @ 125 mls/hr IV .Q8H [facility] Last Admin: 08/12/18 10:43 Dose: Not Given Documented by: Admin: 08/12/18 03:30 Dose: 125 mls/hr Documented by: Infusion: 08/12/18 01:48 Dose: 125 mls/hr Documented by: Admin: 08/12/18 00:14 Dose: Not Given Documented by: Admin: 08/11/18 17:48 Dose: 125 mls/hr Documented by: Infusion: 08/11/18 13:14 Dose: 125 mls/hr Documented by: [id number] Admin: 08/11/18 10:03 Dose: Not Given Documented by: [id number] Admin: 08/11/18 05:14 Dose: 125 mls/hr Documented by: Infusion: 08/11/18 05:14 Dose: 125 mls/hr Documented by: Admin: 08/10/18 21:32 Dose: 125 mls/hr Documented by: [email or web address] Infusion: 08/10/18 21:10 Dose: 125 mls/hr Documented by: [email or web address] Admin: 08/10/18 17:14 Dose: Not Given Documented by: [email or web address] Admin: 08/10/18 13:10 Dose: 125 mls/hr Documented by: [email or web address] Infusion: 08/10/18 11:08 Dose: 125 mls/hr Documented by: [email or web address] Admin: 08/10/18 10:03 Dose: Not Given Documented by: [email or web address] Admin: 08/10/18 03:08 Dose: 125 mls/hr Documented by: Infusion: 08/10/18 01:19 Dose: 125 mls/hr Documented by: [email or web address] Admin: 08/09/18 17:19 Dose: 125 mls/hr Documented by: [id number] Piperacillin Sod/Tazobactam (Sod 3.375 gm/ Dextrose) 50 mls @ 100 mls/hr IV Q6H DANIKA; Protocol Last Admin: 08/12/18 11:57 Dose: 100 mls/hr Documented by: Infusion: 08/12/18 06:20 Dose: 0 mls/hr Documented by: Admin: 08/12/18 05:42 Dose: 100 mls/hr Documented by: Infusion: 08/12/18 00:26 Dose: 100 mls/hr Documented by: Admin: 08/11/18 23:56 Dose: 100 mls/hr Documented by: Infusion: 08/11/18 18:18 Dose: 100 mls/hr Documented by: Admin: 08/11/18 17:48 Dose: 100 mls/hr Documented by: [email or web address] Infusion: 08/11/18 13:09 Dose: 100 mls/hr Documented by: [id number] Admin: 08/11/18 12:39 Dose: 100 mls/hr Documented by: Infusion: 08/11/18 06:43 Dose: 100 mls/hr Documented by: Admin: 08/11/18 06:13 Dose: 100 mls/hr Documented by: Infusion: 08/11/18 05:15 Dose: 0 mls/hr Documented by: Admin: 08/11/18 00:09 Dose: 100 mls/hr Documented by: Infusion: 08/10/18 17:35 Dose: 100 mls/hr Documented by: Admin: 08/10/18 17:05 Dose: 100 mls/hr Documented by: Infusion: 08/10/18 13:57 Dose: 100 mls/hr Documented by: Admin: 08/10/18 13:27 Dose: 100 mls/hr Documented by: Infusion: 08/10/18 06:55 Dose: 100 mls/hr Documented by: Admin: 08/10/18 06:25 Dose: 100 mls/hr Documented by: Infusion: 08/10/18 00:01 Dose: 100 mls/hr Documented by: Admin: 08/09/18 23:31 Dose: 100 mls/hr Documented by: Infusion: 08/09/18 23:26 Dose: 0 mls/hr Documented by: Admin: 08/09/18 19:07 Dose: 100 mls/hr Documented by: LEONA Metoclopramide HCl (Reglan) 10 mg IV Q6 DANIKA Last Admin: 08/12/18 12:00 Dose: 10 mg Documented by: Admin: 08/12/18 05:42 Dose: 10 mg Documented by: Admin: 08/12/18 00:09 Dose: 10 mg Documented by: Admin: 08/11/18 17:49 Dose: 10 mg Documented by: Admin: 08/11/18 12:39 Dose: 10 mg Documented by: Admin: 08/11/18 06:13 Dose: 10 mg Documented by: Admin: 08/11/18 00:09 Dose: 10 mg Documented by: Admin: 08/10/18 17:58 Dose: 10 mg Documented by: Admin: 08/10/18 13:27 Dose: 10 mg Documented by: Admin: 08/10/18 06:24 Dose: 10 mg Documented by: Admin: 08/09/18 23:31 Dose: 10 mg Documented by: Admin: 08/09/18 18:56 Dose: 10 mg Documented by: JAMES Ondansetron HCl (Zofran) 4 mg IV Q4HP PRN PRN Reason: Nausea And Vomiting Last Admin: 08/12/18 09:50 Dose: 4 mg Documented by: Admin: 08/11/18 14:22 Dose: 4 mg Documented by: Admin: 08/11/18 10:02 Dose: 4 mg Documented by: Admin: 08/11/18 02:33 Dose: 4 mg Documented by: Admin: 08/10/18 06:37 Dose: 4 mg Documented by: LEONA Pantoprazole Sodium (Protonix) 40 mg IV BIDAC [facility] Last Admin: 08/12/18 08:00 Dose: 40 mg Documented by: Admin: 08/11/18 16:32 Dose: 40 mg Documented by: Admin: 08/11/18 07:59 Dose: 40 mg Documented by: Admin: 08/10/18 17:03 Dose: 40 mg Documented by: Admin: 08/10/18 08:07 Dose: 40 mg Documented by: Admin: 08/09/18 18:56 Dose: 40 mg Documented by: JAMES Promethazine HCl (Phenergan) 12.5 mg IV Q4HP PRN PRN Reason: Nausea And Vomiting Last Admin: 08/10/18 22:37 Dose: 12.5 mg Documented by: LEONA Sodium Chloride (Saline Flush) 10 ml IV Q8 [facility] Last Admin: 08/12/18 13:45 Dose: Not Given Documented by: Admin: 08/12/18 05:43 Dose: Not Given Documented by: Admin: 08/11/18 21:15 Dose: Not Given Documented by: Admin: 08/11/18 15:41 Dose: 10 ml Documented by: Admin: 08/11/18 06:14 Dose: 10 ml Documented by: Admin: 08/11/18 00:08 Dose: 10 ml Documented by: Admin: 08/10/18 14:00 Dose: 10 ml Documented by: Admin: 08/10/18 06:38 Dose: Not Given Documented by: Admin: 08/09/18 23:30 Dose: Not Given Documented by: LEONA Tizanidine HCl (Zanaflex) 2 mg PO PRN PRN PRN Reason: Headache Last Admin: 08/12/18 09:46 Dose: 2 mg Documented by: Admin: 08/12/18 05:43 Dose: 2 mg Documented by: Admin: 08/12/18 00:02 Dose: 2 mg Documented by: Admin: 08/11/18 19:14 Dose: 2 mg Documented by: Admin: 08/11/18 14:22 Dose: 2 mg Documented by: Admin: 08/11/18 10:15 Dose: 2 mg Documented by: Admin: 08/11/18 05:13 Dose: 2 mg Documented by: LEONA Shift Summary 08/12/18 05:07 Shift Summary by Ashleigh Estrada Pt is A&O, up with SBA. Continues to complain of migraines, she gets 1/2 norco and zanaflex, which is helpful. She received IV dilaudid PRN for abdominal pain. She is voiding in the bathroom. She has IV running to RAC, ASHLEY to rt abd with minimal output. Will update with verbal report. Initialized on 08/12/18 05:07 - END OF NOTE
== END 2018-08-12 18:36 | disposition home or self-care (01) | DRG 339 ==
LOC: MEDSUR 07:45 → ED 07:45 → MEDSUR 11:10 → SUR 11:10 → MEDSUR 12:41
PROVIDERS: ADMIT Family Medicine Adult Medicine; ATTEND Family Medicine Adult Medicine
PROC: LAPAPPY (ICD-10-PCS; 2018-08-09 13:34)

== ENCOUNTER 2018-08-16 20:52 | Inpatient (IN) ==
[2018-08-16] MEDS ORDERED: IOPAMIDOL 100 ML BOTTLE IV ONE (20:53)
[2018-08-16] MEDS ORDERED: HYDROmorphone 2 MG/ML VIAL IV PRN (21:06)
[2018-08-16] MEDS ORDERED: PIPERACILLIN SODIUM/TAZOBACTAM 3.375 GM in DEXTROSE 5% IN WATER 50 ML IV ONE (21:06)
[2018-08-16] MEDS ORDERED: LACTATED RINGERS 1,000 ML IV ONE (21:06)
[2018-08-16] MEDS ORDERED: ONDANSETRON 4 MG/2 ML VIAL IV ONE (21:06)
--- NOTE | 2018-08-16 21:09 | Emergency Department Note ---
Skin/Abscess/FB HPI - General Chief complaint: Skin/Abscess/Foreign Body Stated complaint: Appy infection Time Seen by Provider: 08/16/18 20:57 Mode of arrival: ambulatory - History of Present Illness HPI Narrative: This patient had a ruptured appendix a few days ago and was operated by Dr. Stephen. She has a drain in place. She had a midline incision. She is draining some foul-smelling pus from the incision and has erythema about the incision site now. - Related Data Previous Rx's Medication Instructions Recorded Butalb/Acetaminophen/Caffeine 1 - 2 tab PO Q4H #30 cap 08/12/18 [Fioricet 50-300-40 mg Capsule] Ciprofloxacin [Cipro] 500 mg PO BID #20 tab 08/12/18 HYDROcodone/APAP 10/325MG [Waldo 1 tab PO Q4H PRN #42 tab 08/12/18 10-325Mg] Allergies Allergy/AdvReac Type Severity Reaction Status Date / Time No Known Drug Allergies Allergy Verified 08/09/18 07:48 Review of Systems All systems ED: reviewed and negative except as stated. Past Medical History - Past Medical History [facility] Narrative: Medical History (Last Reviewed 06/11/18 @ 11:40 by Katrina Willis PA-C) Acute frontal sinusitis (Acute) Acute bronchitis (Acute) Polyarthralgia (Acute) Myalgia (Acute) MICHAEL positive (Acute) Vitamin B12 deficiency (Chronic) Osteoarthritis (Chronic) Morbid obesity (Acute) Gastroesophageal reflux (Chronic) Dysmetabolic syndrome X (Chronic) Benign neoplasm of colon (Chronic) Past Surgical History (Last Reviewed 06/11/18 @ 11:40 by Katrina Willis PA-C) Hx of plastic surgery (Acute) History of loop electrical excision procedure (LEEP) (Acute) Hx of gastric bypass (Acute) Hx of section (Acute) Hx of breast augmentation (Acute) Family History (Last Reviewed 06/11/18 @ 11:40 by Katrina Willis PA-C) none listed Asthma Malignant neoplasm of colon father History of coronary artery bypass surgery Diabetes mellitus mother Diabetes mellitus Malignant neoplasm of pancreas Medical history: Reports: GERD Surgical history ED: Reports: appendectomy, bariatric surgery - Social History smoking status: Never smoker Physical Exam Abdominal wall is a bit distended there is drainage from the incision which is cultured she has surrounding erythema abdomen seems slightly distended. Limitations: no limitations General appearance: alert Head: atraumatic Eye: Present: normal appearance ENT: normal exam Neck: Present: normal inspection Chest: Present: normal inspection Respiratory: Present: normal lung sounds bilaterally Cardiovascular: Present: regular rate, normal rhythm, normal heart sounds Abdominal: Present: soft, tenderness. Absent: distention Abdominal tenderness: Present: diffuse, mild Neurological: Present: alert Psychiatric: Present: normal affect Skin: Present: warm Course Vital Signs Temperature 97.9 F 08/16/18 20:53 Pulse Rate 82 08/16/18 20:53 Respiratory Rate 20 08/16/18 20:53 Blood Pressure 119/78 08/16/18 20:53 Pulse Oximetry (%) 98 08/16/18 20:53 Temperature 97.9 F 08/16/18 20:53 Pulse Rate 78 08/16/18 22:31 Respiratory Rate 20 08/16/18 20:53 Blood Pressure 120/81 08/16/18 22:31 Pulse Oximetry (%) 98 08/16/18 22:31 Skin/Abscess/Foreign Body - MDM Narrative Medical decision making narrative: CT scan shows a seroma to the right of the incision in the midline. Most of the problem appears to be a wound infection the patient will be admitted overnight. Dr. Stephen will be the admitting physician. - Lab Data Lab results reviewed: Yes I reviewed the patient's lab results. Result diagrams: 08/16/18 21:20 08/16/18 21:20 Lab Results 08/16/18 08/16/18 Range/Units 21:20 21:20 WBC 7.1 (4.5-11.0) K/mcL RBC 3.95 L (4.00-5.20) M/mcL Hgb 10.4 L (12.0-15.0) g/dL Hct 33.2 L (36.0-48.0) % MCV 84.0 (80.0-100.0) fL MCH 26.3 (26.0-34.0) pg MCHC 31.3 (31.0-36.0) g/dL RDW 18.0 H (11.5-14.5) % Plt Count 380 (140-440) K/mcL MPV 7.4 (7.4-10.4) fL Gran % 72.7 (38.0-78.0) % Lymph % (Auto) 13.9 L (15.5-49.0) % [place]ois % (Auto) 10.9 (1.0-12.0) % Eos % (Auto) 2.0 (0.0-7.0) % Baso % (Auto) 0.5 (0.0-2.0) % Gran # 5.2 (1.8-8.0) K/mcL Lymph # (Auto) 1.0 L (1.5-4.8) K/mcL [place]ois # (Auto) 0.8 (0.1-0.9) K/mcL Eos # (Auto) 0.1 (0.0-0.7) K/mcL Baso # (Auto) 0 (0.0-0.3) K/mcL Sodium 140 (133-145) mmol/L Potassium 4.0 (3.3-5.1) mmol/L Chloride 104 (96-108) mmol/L Carbon Dioxide 27 (22-30) mmol/L Anion Gap 9.0 (8-16) BUN 12 (6-20) mg/dl Creatinine 0.6 (0.6-1.1) mg/dl GFR Calculation 103 Glucose 92 (70-105) mg/dL Calcium 8.7 (8.6-10.4) mg/dl Total Bilirubin 0.2 (0.0-1.0) mg/dL AST 34 (0-37) U/l ALT 41 H (0-40) U/l Alkaline Phosphatase 114 (39-117) U/L Total Protein 6.4 (5.9-8.4) gm/dL Albumin 3.1 L (3.2-5.2) gm/dL Globulin 3.3 (2.2-3.7) gm/dL Albumin/Globulin Ratio 0.9 L (1.0-2.3) - Radiology Data Radiology results reviewed: Yes I reviewed the patient's radiology results. Disposition Pt seen by [employer] VICE PRESIDENT/PA only: No Clinical Impression: Wound infection Disposition: Xfer As Outpt/Obs ([facility]) Condition: Good Referrals: Rufus Arellano MD [Primary Care Provider] - Time of Disposition: 22:56
[2018-08-16 21:51] LABS: Basophils # (Auto) 0 K/mcL (0.0-0.3); Basophils % (Auto) 0.5 % (0.0-2.0); Eosinophils # (Auto) 0.1 K/mcL (0.0-0.7); Granulocytes % (Auto) 72.7 % (38.0-78.0); Lymphocytes % (Auto) 13.9 % (15.5-49.0); Mean Corpuscular HGB Conc 31.3 g/dL (31.0-36.0); Monocytes # (Auto) 0.8 K/mcL (0.1-0.9); Monocytes % (Auto) 10.9 % (1.0-12.0); Platelet Count 380 K/mcL (140-440); RBC 3.95 M/mcL (4.00-5.20)
[2018-08-16] MEDS ORDERED: 0.9 % SODIUM CHLORIDE 1,000 ML IV ONE (21:57)
[2018-08-16 22:10] LABS: ALT/SGPT 41 U/l (0-40); Albumin 3.1 gm/dL (3.2-5.2); Albumin/Globulin Ratio 0.9 (1.0-2.3); Alkaline Phosphatase 114 U/L (39-117); Blood Urea Nitrogen 12 mg/dl (6-20)
[2018-08-17] MEDS: HYDROmorphone 2 MG/ML VIAL IV PRN ×4 (01:43→20:26)
[2018-08-17] MEDS: ONDANSETRON 4 MG/2 ML VIAL IV PRN ×2 (01:43→10:23)
[2018-08-17] MEDS: PIPERACILLIN SODIUM/TAZOBACTAM 3.375 GM in DEXTROSE 5% IN WATER 50 ML IV SCH ×4 (05:59→23:46)
--- NOTE | 2018-08-17 06:18 | Cat Scan Report ---
CLINICAL INFORMATION: Previous appendectomy performed on 08/09/2018. Increasing abdominal pain COMPARISON: Preoperative evaluation dated 08/09/2018 TECHNIQUE: Axial images were obtained through the abdomen and pelvis. Sagittally and coronally reformatted images. 90 mL contrast material injected intravenously. Oral contrast material was not administered FINDINGS: Patient is status post open appendectomy. There are skin geoff in a vertical midline incision. There is a surgical drain in the right lower quadrant. There are surgical clips at the appendectomy site. There is postsurgical inflammatory change with infiltration of normal retroperitoneal and intraperitoneal fat. There is no focal fluid collection. No postoperative abscess identified. There is no significant free pelvic fluid. There is no pneumoperitoneum. No biliary or portal venous gas. No significant pneumatosis. There is a probable adynamic ileus with somewhat dilated fluid-filled small bowel. There is mild atelectasis at both lung bases. No pleural effusion. There is no pericardial effusion. There are bilateral breast implants present. Patient has undergone previous gastric bypass procedure. Liver is negative. No focal intrahepatic mass. No evidence for hepatic abscess. Liver contour is smooth. There are surgical clips in the gallbladder fossa. No dilated bile ducts. Spleen is negative. Normal enhancement of splenic and portal veins. Negative pancreas. No evidence for pancreatitis. Adrenal glands are negative. No adrenal mass. Kidneys are negative. No solid or cystic renal mass. There is no hydronephrosis. Uterine fibroids are suspected. There is no adnexal mass. Multilevel degenerative disc disease in the lumbar spine. Sacrum and pelvis are negative. There is soft tissue density in the subcutaneous fat in the ventral midline incision and there are postoperative gas bubbles. No evidence for abscess. Examination was initially interpreted by [facility] IMPRESSION: 1. Previous open appendectomy. No postoperative abscess. There is probable adynamic ileus 2. History of gastric bypass and cholecystectomy 3. Mild bilateral lower lobe atelectasis 4. Postsurgical change in the subcutaneous fat of the anterior abdominal wall. There is no focal abscess The exam was performed using radiation dose optimization techniques including, but not limited to, automated exposure control, adjustment of the mA and/or kV according to patient size and use of iterative reconstruction technique. Interpreted and Authenticated by: Sivakumar Georges 08/17/18
[2018-08-17] MEDS ORDERED: 0.9 % SODIUM CHLORIDE 1,000 ML IV SCH (08:15)
[2018-08-17 12:48] LABS: Appearance,Urine CLEAR; Bilirubin,Urine NEG (NEG); Color,Urine COLORLESS; Glucose,Urine (UA) NEGATIVE (NEG); Leukocyte Esterase,Urine NEG /uL (NEG); Protein,Urine NEG (NEG); Specific Gravity,Urine 1.006 (1.000-1.035); Urine Blood NEG mg/dL (<0.03); Urobilinogen,Urine NEG (NEG)
[2018-08-17] MEDS ORDERED: SCOPOLAMINE 1 PATCH PATCH TOPICAL ONE (13:59)
[2018-08-17] MEDS ORDERED: PROPOFOL 200 MG/20 ML VIAL IV ONE (15:20)
[2018-08-17] MEDS ORDERED: fentaNYL 100 MCG/2 ML VIAL IV ONE (15:20)
[2018-08-17] MEDS ORDERED: HYDROmorphone 2 MG/ML VIAL IV ONE (15:20)
[2018-08-17] MEDS ORDERED: MIDAZOLAM 2 MG/2 ML VIAL IV ONE (15:20)
[2018-08-17] MEDS ORDERED: LIDOCAINE HCL/PF 100 MG/5 ML SYRINGE IV ONE (15:20)
[2018-08-17] MEDS ORDERED: ONDANSETRON 4 MG/2 ML VIAL IV ONE (15:20)
[2018-08-17] MEDS ORDERED: PROMETHAZINE 12.5 MG SUPP.RECT PR ONE (15:20)
[2018-08-17] MEDS ORDERED: DEXAMETHASONE 10 MG/ML VIAL IV ONE (15:20)
[2018-08-17] MEDS ORDERED: HYDROmorphone 2 MG/ML VIAL IV PRN (15:52)
[2018-08-17] MEDS ORDERED: FLUMAZENIL 0.1 MG/ML ML IV PRN (15:52)
[2018-08-17] MEDS ORDERED: PROMETHAZINE 25 MG/ML VIAL IV PRN (15:52)
[2018-08-17] MEDS ORDERED: ACETAMINOPHEN 1,000 MG/100 ML BOTTLE IV ONE (15:52)
[2018-08-17] MEDS ORDERED: IPRATROPIUM/ALBUTEROL 3 ML AMPUL.NEB NEB PRN (15:52)
[2018-08-17] MEDS ORDERED: BENZOCAINE/MENTHOL 1 LOZENGE PO PRN (15:52)
[2018-08-17] MEDS ORDERED: diphenhydrAMINE 50 MG/ML VIAL IV PRN (15:52)
[2018-08-17] MEDS ORDERED: MEPERIDINE 25 MG/ML SYRINGE IV PRN (15:52)
[2018-08-17] MEDS ORDERED: LACTATED RINGERS 250 ML IV PRN (15:52)
[2018-08-17] MEDS ORDERED: NALOXONE HCL 0.4 MG/ML VIAL IV PRN (15:52)
[2018-08-17] MEDS ORDERED: ONDANSETRON 4 MG/2 ML VIAL IV PRN (15:52)
--- NOTE | 2018-08-17 15:55 | Brief Operative Note ---
Date of procedure: 08/17/18 Pre-op diagnosis: post-operative wound infection Post-op diagnosis: other (abdominal wall abscess with wound infection) Procedure: incision and debridement of postoperative wound infection Grafts/Implants: No Anesthesia: GLMA Findings: large abscess of entire incision Complications: none Surgeon: Torito Stephen Specimens Removed/Pathology: other (culture of abscess drainage) Condition: stable Disposition: PACU
[2018-08-17] MEDS ORDERED: LACTATED RINGERS 1,000 ML IV SCH (16:00)
[2018-08-17] MEDS ORDERED: BACITRACIN 50,000 UNIT VIAL IR ONE (16:03)
--- NOTE | 2018-08-17 16:09 | General Surg History&Physical ---
History of Present Illness Patient information: Note initiated : 08/17/18 at 4:08 pm Service Date, if different from initiated Date: [] Patient: Marie Arredondo a 53 y/o F admitted on 08/17/18 for Appy infection. Chief Complaint: [] HPI: Ms. Arredondo is a 53 year old F was admitted with a postoperative wound infection. The patient presented on July with a three-day history of right lower quadrant pain with nausea. She was found to have acute appendicitis. She underwent open appendectomy for perforated appendix with thickening of the cecum. The base of the cecum was necrotic, but could be closed primarily. The patient was discharged home on July on ciprofloxacin 500 mg twice daily. 2 days after getting home, she noted increased drainage from her incision. She was seen in the emergency room where was noted that she has an acute infection and she is admitted. Review of Systems - Constitutional headache(s), night sweats, weight loss - EENT Nose, mouth and throat: nasal discharge, post-nasal drip, sinus pain - Cardiovascular no chest pain with activity, no palpatations, no paroxysmal nocturnal dyspnea, no syncope - Respiratory cough, no dyspnea on exertion, no chest congestion, no pain with cough - Gastrointestinal abdominal pain, bloating, no dyspepsia, no heartburn, no nausea, no vomiting - Genitourinary Genitourinary: no dysuria, no pelvic pain - Musculoskeletal back pain, joint swelling, myalgias, stiffness - Integumentary other (infection of midline incision with drainage of purulent fluid with surrounding cellulitis) - Neurological no confusion, no dizziness, no vertigo - Psychiatric no anxiety, no confusion, no depression - Endocrine fatigue, no palpitations - Hematologic/Lymphatic no easy bleeding, no easy bruising, no lymphadenopathy - Allergic/Immunologic no tongue swelling, no throat swelling, no uticaria, no wheezing, no lip swelling Past History Past medical history: Gastroesophageal reflux Past surgical history: Abdominoplasty Breast surgery. Gastric bypass. Cholecystectomy. Left shoulder surgery Past family history: Colon cancer. Diabetes mellitus. Coronary artery disease. History pancreatic cancer Past social history: Never smoker. Does not drink Medications and Allergies Home Medications Medication Instructions Recorded Confirmed Type Butalb/Acetaminophen/Caffeine 1 - 2 tab PO Q4H #30 cap 08/12/18 08/16/18 Rx [Fioricet 50-300-40 mg Capsule] Ciprofloxacin [Cipro] 500 mg PO BID #20 tab 08/12/18 08/16/18 Rx HYDROcodone/APAP 10/325MG [[place] 1 tab PO Q4H PRN #42 tab 08/12/18 08/16/18 Rx 10-325Mg] Allergies Allergy/AdvReac Type Severity Reaction Status Date / Time No Known Drug Allergies Allergy Verified 08/09/18 07:48 Exam Temp Pulse Resp BP Pulse Ox 98.5 F 102 H 17 140/57 100 08/17/18 15:58 08/17/18 16:05 08/17/18 16:05 08/17/18 16:05 08/17/18 16:05 - General physical appearance well developed, well nourished, no distress, moderate pain, obese - Eyes PERRL, normal ocular movement - ENT normal pinna, normal nares, normal mucosa, no hearing loss, no congestion - Head Head exam IM: Present: atraumatic, normocephalic - Neck no masses, no bruits, trachea midline, no lymphadenopathy, no venous distension - Cardiovascular Cardiovascular exam IM: Present: normal rate and rhythm, RRR, +S1, +S2. Absent: JVD, tachycardia - Respiratory normal expansion, normal respiratory effort, clear to auscultation - Abdomen Abdomen: Present: soft, tender (tender anterior abdominal wall with inflamed midline incision with associated purulent drainage), bowel sounds, wound Hernia: Present: none - Genitourinary Present: normal external genitalia - Integumentary Present: no rash, no growths, no abnormal pigmentation, other (as noted under abdominal) - Neurologic Present: normal coordination, normal sensation - Musculoskeletal Present: normal gait, normal posture - Psychiatric Present: oriented to time, oriented to person, oriented to place, speech is normal, memory intact Assessment and Plan (1) Wound infection Cover with Zosyn and vancomycin pending culture. Schedule for open debridement and drainage under anesthesia Status: Acute (2) Acute appendicitis Status: Resolved (3) Gastroesophageal reflux Status: Chronic
[2018-08-17] MEDS ORDERED: VANCOMYCIN PER PHARMACY IV SCH (16:15)
[2018-08-17] MEDS ORDERED: VANCOMYCIN 1,000 MG in 0.9 % SODIUM CHLORIDE 250 ML IV SCH (16:15)
[2018-08-17] MEDS: fentaNYL 100 MCG/2 ML VIAL IV PRN ×3 (16:21→16:26)
[2018-08-17] MEDS: 0.9 % SODIUM CHLORIDE 1,000 ML IV SCH (16:40)
[2018-08-17] MEDS ORDERED: VANCOMYCIN 2,000 MG in 0.9 % SODIUM CHLORIDE 500 ML IV ONE (19:00)
[2018-08-17] MEDS: BUTALB/ACETAMINOPHEN/CAFFEINE 1 TABLET PO PRN (20:25)
[2018-08-18] MEDS ORDERED: VANCOMYCIN 1,000 MG in 0.9 % SODIUM CHLORIDE 250 ML IV SCH (04:15)
[2018-08-18] MEDS: BUTALB/ACETAMINOPHEN/CAFFEINE 1 TABLET PO PRN ×3 (04:32→20:55)
[2018-08-18] MEDS: HYDROmorphone 2 MG/ML VIAL IV PRN ×4 (04:33→20:56)
[2018-08-18] MEDS: PIPERACILLIN SODIUM/TAZOBACTAM 3.375 GM in DEXTROSE 5% IN WATER 50 ML IV SCH ×2 (05:51→12:41)
[2018-08-18 06:01] LABS: Basophils # (Auto) 0 K/mcL (0.0-0.3); Basophils % (Auto) 0 % (0.0-2.0); Eosinophils # (Auto) 0 K/mcL (0.0-0.7); Eosinophils % (Auto) 0.1 % (0.0-7.0); Granulocytes % (Auto) 79.1 % (38.0-78.0); Lymphocytes # (Auto) 0.7 K/mcL (1.5-4.8); Lymphocytes % (Auto) 11.5 % (15.5-49.0); Mean Cell Volume 84.7 fL (80.0-100.0); Mean Corpuscular HGB Conc 31.7 g/dL (31.0-36.0); Monocytes # (Auto) 0.6 K/mcL (0.1-0.9); Monocytes % (Auto) 9.3 % (1.0-12.0); Platelet Count 409 K/mcL (140-440); RBC 3.79 M/mcL (4.00-5.20); Red Cell Distribution Width 18.9 % (11.5-14.5)
[2018-08-18 06:24] LABS: ALT/SGPT 109 U/l (0-40); Albumin 2.6 gm/dL (3.2-5.2); Albumin/Globulin Ratio 0.8 (1.0-2.3); Alkaline Phosphatase 178 U/L (39-117); Bilirubin,Direct < 0.2 mg/dL (0.0-0.3); Blood Urea Nitrogen 9 mg/dl (6-20); Gamma Glutamyl Transpeptidase 151 U/L (5-36); Uric Acid 2.7 mg/dL (2.5-8.0)
[2018-08-18] MEDS: 0.9 % SODIUM CHLORIDE 1,000 ML IV SCH (07:30)
[2018-08-18] MEDS ORDERED: VANCOMYCIN 1,500 MG in 0.9 % SODIUM CHLORIDE 500 ML IV SCH (09:00)
--- NOTE | 2018-08-18 13:15 | General Surgery Progress Note ---
Subjective Patient reports: feels better, pain is less, tolerating a regular diet, flatus, bowel movement, afebrile Narrative: Note initiated : 08/18/18 at 1:12 pm Service Date, if different from initiated Date: [] Patient: Marie Arredondo 53 y/o F admitted on 08/17/18 for Appy infection. Chief Complaint: [patient is doing well. She has been afebrile. She has modest drainage on her abdominal dressing. Preliminary cultures from the incision or groin Escherichia coli streptococcus species. the Escherichia coli is relatively resistant to Piperacillin but very sensitive to Cipro;white blood count 6.4; Hemoglobin 10.2, slight elevation in LFTs.] Objective Temp Pulse Resp BP Pulse Ox 97.4 F 74 20 116/75 99 08/18/18 12:00 08/18/18 12:00 08/18/18 12:00 08/18/18 12:00 08/18/18 12:00 - Additional Data Intake & Output - Last 24 hours: Intake & Output 08/16/18 08/17/18 08/18/18 08/19/18 05:59 05:59 05:59 05:59 Intake Total 1050 1965 740 Output Total 1670 2615 Balance -620 -650 740 Weight 314 lb 316 lb 316 lb - General physical appearance well developed, well nourished, no distress - Eyes PERRL, normal ocular movement - ENT normal pinna, normal nares, normal mucosa, no hearing loss, no congestion - Neck no masses, no bruits, trachea midline, no lymphadenopathy, no venous distension - Respiratory normal expansion, normal respiratory effort, clear to auscultation - Cardiovascular Cardiovascular exam: Present: normal rate and rhythm, RRR, +S1, +S2. Absent: JVD, tachycardia - Abdomen wound (surgical wound has minimal drainage. The Aquasol AG will be left in place. Will change tomorrow with plans for wound VAC placement on Friday.) - Integumentary no rash, no growths, no abnormal pigmentation - Neurologic normal coordination, normal sensation - Musculoskeletal normal gait, normal posture - Psychiatric oriented to time, oriented to person, oriented to place, speech is normal, memory intact - Labs 08/18/18 04:15 08/18/18 04:15 Diabetes panel 08/18/18 Range/Units 04:15 Sodium 140 (133-145) mmol/L Potassium 4.6 (3.3-5.1) mmol/L Chloride 107 (96-108) mmol/L Carbon Dioxide 22 (22-30) mmol/L BUN 9 (6-20) mg/dl Creatinine 0.6 (0.6-1.1) mg/dl Glucose 113 H (70-105) mg/dL Calcium 8.2 L (8.6-10.4) mg/dl AST 84 H (0-37) U/l ALT 109 H (0-40) U/l Alkaline Phosphatase 178 H (39-117) U/L Total Protein 5.8 L (5.9-8.4) gm/dL Albumin 2.6 L (3.2-5.2) gm/dL Triglycerides 57 (<150) mg/dl Calcium panel 08/18/18 Range/Units 04:15 Calcium 8.2 L (8.6-10.4) mg/dl Phosphorus 3.1 (2.7-4.5) mg/dL Albumin 2.6 L (3.2-5.2) gm/dL Pituitary panel 08/18/18 Range/Units 04:15 Sodium 140 (133-145) mmol/L Potassium 4.6 (3.3-5.1) mmol/L Chloride 107 (96-108) mmol/L Carbon Dioxide 22 (22-30) mmol/L BUN 9 (6-20) mg/dl Creatinine 0.6 (0.6-1.1) mg/dl Glucose 113 H (70-105) mg/dL Calcium 8.2 L (8.6-10.4) mg/dl Adrenal panel 08/18/18 Range/Units 04:15 Sodium 140 (133-145) mmol/L Potassium 4.6 (3.3-5.1) mmol/L Chloride 107 (96-108) mmol/L Carbon Dioxide 22 (22-30) mmol/L BUN 9 (6-20) mg/dl Creatinine 0.6 (0.6-1.1) mg/dl Glucose 113 H (70-105) mg/dL Calcium 8.2 L (8.6-10.4) mg/dl Total Bilirubin 0.2 (0.0-1.0) mg/dL AST 84 H (0-37) U/l ALT 109 H (0-40) U/l Alkaline Phosphatase 178 H (39-117) U/L Total Protein 5.8 L (5.9-8.4) gm/dL Albumin 2.6 L (3.2-5.2) gm/dL Assessment and Plan (1) Wound infection Status: Acute Assessment and plan: Discontinue Zosyn and vancomycin Start ciprofloxacin IV Current Visit: Yes (2) Acute appendicitis Status: Resolved Current Visit: No (3) Gastroesophageal reflux Status: Chronic Current Visit: No - Time Spent With Patient Total time spent is greater than 50% in coordination of care (as documented) at patient's floor/unit and/or counseling patient:
[2018-08-18] MEDS: HYDROcodone/APAP 5/325MG TABLET PO PRN ×2 (13:35→19:53)
[2018-08-18] MEDS: CIPROFLOXACIN 400 MG/200 ML BAG IV SCH ×2 (13:36→23:07)
[2018-08-18] MEDS: ONDANSETRON 4 MG/2 ML VIAL IV PRN (20:56)
[2018-08-19] MEDS: BUTALB/ACETAMINOPHEN/CAFFEINE 1 TABLET PO PRN ×5 (01:40→22:39)
[2018-08-19 06:30] LABS: Basophils # (Auto) 0.1 K/mcL (0.0-0.3); Basophils % (Auto) 0.9 % (0.0-2.0); Eosinophils # (Auto) 0.2 K/mcL (0.0-0.7); Eosinophils % (Auto) 2.3 % (0.0-7.0); Granulocytes % (Auto) 58.8 % (38.0-78.0); Lymphocytes # (Auto) 1.9 K/mcL (1.5-4.8); Mean Cell Volume 84.9 fL (80.0-100.0); Monocytes # (Auto) 0.7 K/mcL (0.1-0.9); Platelet Count 432 K/mcL (140-440); RBC 3.63 M/mcL (4.00-5.20); Red Cell Distribution Width 18.7 % (11.5-14.5)
[2018-08-19 06:51] LABS: ALT/SGPT 73 U/l (0-40); Alkaline Phosphatase 157 U/L (39-117); Bilirubin,Direct < 0.2 mg/dL (0.0-0.3); Blood Urea Nitrogen 10 mg/dl (6-20); Gamma Glutamyl Transpeptidase 137 U/L (5-36); Uric Acid 3.5 mg/dL (2.5-8.0)
--- NOTE | 2018-08-19 07:38 | Operative Note ---
DATE OF OPERATION: 08/17/2018 PREOPERATIVE DIAGNOSIS: Postoperative wound infection. POSTOPERATIVE DIAGNOSIS: Postoperative abdominal wall abscess with wound infection. PROCEDURE: Excisional debridement and drainage of abdominal wall abscess and infection. SURGEON: Torito Stephen MD FINDINGS: A large abscess of the entire length of the incision with some early necrosis of the fascia. DESCRIPTION OF PROCEDURE: Under general anesthesia, the patient's abdomen was prepped and draped in a sterile field. The geoff were removed. There was a small amount of fatty oily drainage at the umbilicus. Compression in this area revealed a large volume of pus. Specimens were taken for culture. The rest of the incision was opened and a large abscess cavity of the upper two-thirds of the incision was encountered. The large volume of purulence was suctioned. The lower part of the incision was also acutely inflamed but had not formed abscess yet. This was debrided using Metzenbaum scissors. Copious irrigation was carried out once more. The entire incision was then scrubbed with two scrub brushes soaked in chlorhexidine. The incision was then flushed with bacitracin solution. Next, the incision was covered with bacitracin powder and this was closed with three 4 x 5 Aquacel AG gauzes. This was covered by 4 x 4's and tape. The patient tolerated the procedure well. She was awakened and transferred to a bed and taken to the postanesthetic care unit in stable, satisfactory condition. LCS:phan Job ID: [id number] Doc ID: [id number] Torito Stephen M.D.
[2018-08-19] MEDS: HYDROcodone/APAP 5/325MG TABLET PO PRN ×4 (08:02→22:38)
[2018-08-19] MEDS: 0.9 % SODIUM CHLORIDE 10 ML SYRINGE IV SCH ×2 (08:52→21:33)
[2018-08-19] MEDS: CIPROFLOXACIN 400 MG/200 ML BAG IV SCH ×2 (08:53→21:32)
[2018-08-19] MEDS: ONDANSETRON 4 MG/2 ML VIAL IV PRN (11:09)
[2018-08-19] MEDS: HYDROmorphone 2 MG/ML VIAL IV PRN ×3 (11:09→19:31)
--- NOTE | 2018-08-19 16:25 | General Surgery Progress Note ---
Subjective Patient reports: feels better, pain is less (she is on Suboxone and is basically), flatus, afebrile Narrative: Note initiated : 08/19/18 at 4:23 pm Service Date, if different from initiated Date: [] Patient: Marie Arredondo 53 y/o F admitted on 08/17/18 for Appy infection. Chief Complaint: [patient is doing well. Her discomfort is significantly improved. She is afebrile. White blood count 6.7, hemoglobin 9.9, potassium 3.8. Incision dressing was changed. The base of the incision is clean and she is beginning to develop early granulations. There is no gross purulence noted.] Objective Temp Pulse Resp BP Pulse Ox 97.9 F 88 14 115/75 96 08/19/18 11:32 08/19/18 11:32 08/19/18 11:32 08/19/18 11:32 08/19/18 11:32 - Additional Data Intake & Output - Last 24 hours: Intake & Output 08/17/18 08/18/18 08/19/18 08/20/18 05:59 05:59 05:59 05:59 Intake Total 1050 1965 1790 895 Output Total 1670 2615 2670 3900 Balance -620 -650 -880 -3005 Weight 314 lb 316 lb 317 lb - General physical appearance well developed, well nourished, no distress, moderate pain - Eyes PERRL, normal ocular movement - ENT normal pinna, normal nares, normal mucosa, no hearing loss, no congestion - Neck no masses, no bruits, trachea midline, no lymphadenopathy, no venous distension - Respiratory normal expansion, normal respiratory effort, clear to auscultation - Cardiovascular Cardiovascular exam: Present: normal rate and rhythm, RRR, +S1, +S2. Absent: JVD, tachycardia - Abdomen non tender, bowel sounds (present), surgical scars (none), wound (incision base is clean with minimal fat necrosis noted; no significant drainage), masses (none) - Integumentary no rash, no growths, no abnormal pigmentation - Neurologic normal coordination, normal sensation - Musculoskeletal normal gait, normal posture - Psychiatric oriented to time, oriented to person, oriented to place, speech is normal, memory intact - Labs 08/19/18 05:33 08/19/18 05:30 Diabetes panel 08/19/18 Range/Units 05:30 Sodium 144 (133-145) mmol/L Potassium 3.8 (3.3-5.1) mmol/L Chloride 108 (96-108) mmol/L Carbon Dioxide 25 (22-30) mmol/L BUN 10 (6-20) mg/dl Creatinine 0.6 (0.6-1.1) mg/dl Glucose 92 (70-105) mg/dL Calcium 8.7 (8.6-10.4) mg/dl AST 28 (0-37) U/l ALT 73 H (0-40) U/l Alkaline Phosphatase 157 H (39-117) U/L Total Protein 5.9 (5.9-8.4) gm/dL Albumin 3.0 L (3.2-5.2) gm/dL Triglycerides 81 (<150) mg/dl Calcium panel 08/19/18 Range/Units 05:30 Calcium 8.7 (8.6-10.4) mg/dl Phosphorus 3.6 (2.7-4.5) mg/dL Albumin 3.0 L (3.2-5.2) gm/dL Pituitary panel 08/19/18 Range/Units 05:30 Sodium 144 (133-145) mmol/L Potassium 3.8 (3.3-5.1) mmol/L Chloride 108 (96-108) mmol/L Carbon Dioxide 25 (22-30) mmol/L BUN 10 (6-20) mg/dl Creatinine 0.6 (0.6-1.1) mg/dl Glucose 92 (70-105) mg/dL Calcium 8.7 (8.6-10.4) mg/dl Adrenal panel 08/19/18 Range/Units 05:30 Sodium 144 (133-145) mmol/L Potassium 3.8 (3.3-5.1) mmol/L Chloride 108 (96-108) mmol/L Carbon Dioxide 25 (22-30) mmol/L BUN 10 (6-20) mg/dl Creatinine 0.6 (0.6-1.1) mg/dl Glucose 92 (70-105) mg/dL Calcium 8.7 (8.6-10.4) mg/dl Total Bilirubin < 0.2 (0.0-1.0) mg/dL AST 28 (0-37) U/l ALT 73 H (0-40) U/l Alkaline Phosphatase 157 H (39-117) U/L Total Protein 5.9 (5.9-8.4) gm/dL Albumin 3.0 L (3.2-5.2) gm/dL Assessment and Plan (1) Wound infection Status: Acute Assessment and plan: Start ciprofloxacin IV Schedule for debridement under anesthesia with placement of wound VAC on Friday Current Visit: Yes (2) Acute appendicitis Status: Resolved Current Visit: No (3) Gastroesophageal reflux Status: Chronic Current Visit: No - Time Spent With Patient Total time spent is greater than 50% in coordination of care (as documented) at patient's floor/unit and/or counseling patient:
[2018-08-20] MEDS: HYDROcodone/APAP 5/325MG TABLET PO PRN ×5 (02:28→21:05)
[2018-08-20] MEDS: BUTALB/ACETAMINOPHEN/CAFFEINE 1 TABLET PO PRN ×3 (02:28→18:33)
[2018-08-20] MEDS: HYDROmorphone 2 MG/ML VIAL IV PRN ×4 (03:29→21:07)
[2018-08-20 05:42] LABS: Basophils # (Auto) 0 K/mcL (0.0-0.3); Basophils % (Auto) 0.5 % (0.0-2.0); Eosinophils # (Auto) 0.2 K/mcL (0.0-0.7); Eosinophils % (Auto) 2.9 % (0.0-7.0); Granulocytes % (Auto) 55.8 % (38.0-78.0); Lymphocytes # (Auto) 2.1 K/mcL (1.5-4.8); Lymphocytes % (Auto) 29.3 % (15.5-49.0); Mean Cell Volume 85.2 fL (80.0-100.0); Monocytes # (Auto) 0.8 K/mcL (0.1-0.9); Monocytes % (Auto) 11.5 % (1.0-12.0); Platelet Count 465 K/mcL (140-440); RBC 3.83 M/mcL (4.00-5.20); Red Cell Distribution Width 18.6 % (11.5-14.5)
[2018-08-20 05:59] LABS: ALT/SGPT 54 U/l (0-40); Albumin 2.8 gm/dL (3.2-5.2); Albumin/Globulin Ratio 0.9 (1.0-2.3); Alkaline Phosphatase 140 U/L (39-117); Bilirubin,Direct < 0.2 mg/dL (0.0-0.3); Blood Urea Nitrogen 6 mg/dl (6-20); Gamma Glutamyl Transpeptidase 127 U/L (5-36); Uric Acid 4.4 mg/dL (2.5-8.0)
[2018-08-20] MEDS: CIPROFLOXACIN 400 MG/200 ML BAG IV SCH ×2 (08:12→21:20)
[2018-08-20] MEDS: 0.9 % SODIUM CHLORIDE 10 ML SYRINGE IV SCH ×2 (08:13→22:25)
[2018-08-20] MEDS: ONDANSETRON 4 MG/2 ML VIAL IV PRN ×2 (11:17→18:40)
--- NOTE | 2018-08-20 17:35 | General Surgery Progress Note ---
Subjective Patient reports: feels better, pain is less, tolerating a regular diet, flatus, bowel movement, afebrile Narrative: Note initiated : 08/20/18 at 5:33 pm Service Date, if different from initiated Date: [] Patient: Marie Arredondo 53 y/o F admitted on 08/17/18 for Appy infection. Chief Complaint: [Patient continues to improve. She has less drainage and her incision. She does complain of constipation. White count 7.1. Hemoglobin 10.4, electrolytes normal. Discussed with patient the plan to do final debri gracie, debridement and placement of wound VAC tomorrow. She is agreeable to proceed with this.] Objective Temp Pulse Resp BP Pulse Ox 97.7 F 84 18 105/66 95 08/20/18 12:00 08/20/18 16:00 08/20/18 16:00 08/20/18 16:00 08/20/18 16:00 - Additional Data Intake & Output - Last 24 hours: Intake & Output 08/18/18 08/19/18 08/20/18 08/21/18 05:59 05:59 05:59 05:59 Intake Total 1965 1790 1495 200 Output Total 2617 0557 8069 Balance -470 -048 -1928 200 Weight 316 lb 317 lb 314 lb - General physical appearance well developed, well nourished, no distress - Eyes PERRL, normal ocular movement - ENT normal pinna, normal nares, normal mucosa, no hearing loss, no congestion - Neck no masses, no bruits, trachea midline, no lymphadenopathy, no venous distension - Respiratory normal expansion, normal respiratory effort, clear to auscultation - Cardiovascular Cardiovascular exam: Present: normal rate and rhythm, RRR, +S1, +S2. Absent: JVD, tachycardia - Abdomen tender (moderate tenderness noted. ), bowel sounds (present), surgical scars (none), wound (wound is clean with minimal drainage), masses (none) - Integumentary no rash, no growths, no abnormal pigmentation - Neurologic normal coordination, normal sensation - Musculoskeletal normal gait (discharge), normal posture - Psychiatric oriented to time, oriented to person, oriented to place, speech is normal, memory intact - Labs 08/20/18 04:35 08/20/18 04:35 Diabetes panel 08/20/18 Range/Units 04:35 Sodium 144 (133-145) mmol/L Potassium 3.8 (3.3-5.1) mmol/L Chloride 107 (96-108) mmol/L Carbon Dioxide 26 (22-30) mmol/L BUN 6 (6-20) mg/dl Creatinine 0.6 (0.6-1.1) mg/dl Glucose 107 H (70-105) mg/dL Calcium 8.4 L (8.6-10.4) mg/dl AST 17 (0-37) U/l ALT 54 H (0-40) U/l Alkaline Phosphatase 140 H (39-117) U/L Total Protein 5.9 (5.9-8.4) gm/dL Albumin 2.8 L (3.2-5.2) gm/dL Triglycerides 92 (<150) mg/dl Calcium panel 08/20/18 Range/Units 04:35 Calcium 8.4 L (8.6-10.4) mg/dl Phosphorus 3.8 (2.7-4.5) mg/dL Albumin 2.8 L (3.2-5.2) gm/dL Pituitary panel 08/20/18 Range/Units 04:35 Sodium 144 (133-145) mmol/L Potassium 3.8 (3.3-5.1) mmol/L Chloride 107 (96-108) mmol/L Carbon Dioxide 26 (22-30) mmol/L BUN 6 (6-20) mg/dl Creatinine 0.6 (0.6-1.1) mg/dl Glucose 107 H (70-105) mg/dL Calcium 8.4 L (8.6-10.4) mg/dl Adrenal panel 08/20/18 Range/Units 04:35 Sodium 144 (133-145) mmol/L Potassium 3.8 (3.3-5.1) mmol/L Chloride 107 (96-108) mmol/L Carbon Dioxide 26 (22-30) mmol/L BUN 6 (6-20) mg/dl Creatinine 0.6 (0.6-1.1) mg/dl Glucose 107 H (70-105) mg/dL Calcium 8.4 L (8.6-10.4) mg/dl Total Bilirubin < 0.2 (0.0-1.0) mg/dL AST 17 (0-37) U/l ALT 54 H (0-40) U/l Alkaline Phosphatase 140 H (39-117) U/L Total Protein 5.9 (5.9-8.4) gm/dL Albumin 2.8 L (3.2-5.2) gm/dL flareup Assessment and Plan (1) Wound infection Status: Acute Assessment and plan: Start ciprofloxacin IV Schedule for debridement under anesthesia with placement of wound VAC in a.m. Current Visit: Yes (2) Acute appendicitis Status: Resolved Current Visit: No (3) Gastroesophageal reflux Status: Chronic Current Visit: No - Time Spent With Patient Total time spent is greater than 50% in coordination of care (as documented) at patient's floor/unit and/or counseling patient:
[2018-08-20] MEDS: MAGNESIUM HYDROXIDE 30 ML ORAL.SUSP PO PRN ×2 (18:11→21:29)
[2018-08-20] MEDS: metroNIDAZOLE 500 MG/100 ML BAG IV SCH ×2 (18:11→23:55)
[2018-08-21] MEDS: HYDROcodone/APAP 5/325MG TABLET PO PRN ×5 (01:13→23:53)
[2018-08-21] MEDS: HYDROmorphone 2 MG/ML VIAL IV PRN ×6 (04:05→21:31)
[2018-08-21] MEDS: metroNIDAZOLE 500 MG/100 ML BAG IV SCH ×5 (05:45→23:55)
[2018-08-21] MEDS: ONDANSETRON 4 MG/2 ML VIAL IV PRN ×2 (08:08→13:04)
[2018-08-21] MEDS: CIPROFLOXACIN 400 MG/200 ML BAG IV SCH ×2 (08:08→21:20)
[2018-08-21] MEDS: 0.9 % SODIUM CHLORIDE 10 ML SYRINGE IV SCH ×2 (09:16→21:20)
[2018-08-21] MEDS ORDERED: SCOPOLAMINE 1 PATCH PATCH TOPICAL ONE (10:52)
[2018-08-21] MEDS ORDERED: PROMETHAZINE 25 MG/ML VIAL ONE (11:05)
[2018-08-21] MEDS ORDERED: PROPOFOL 200 MG/20 ML VIAL IV ONE (11:05)
[2018-08-21] MEDS ORDERED: DEXAMETHASONE 4 MG/ML VIAL ONE (11:05)
[2018-08-21] MEDS ORDERED: LIDOCAINE HCL/PF 100 MG/5 ML SYRINGE IV ONE (11:05)
[2018-08-21] MEDS ORDERED: MIDAZOLAM 5 MG/5 ML VIAL ONE (11:05)
[2018-08-21] MEDS ORDERED: fentaNYL 100 MCG/2 ML VIAL IV ONE (11:05)
[2018-08-21] MEDS ORDERED: ONDANSETRON 4 MG/2 ML VIAL ONE (11:05)
[2018-08-21] MEDS ORDERED: PHENYLEPHRINE 10 MG/ML VIAL ONE (11:05)
[2018-08-21] MEDS ORDERED: PROMETHAZINE 25 MG/ML VIAL IV PRN (11:19)
[2018-08-21] MEDS ORDERED: FLUMAZENIL 0.1 MG/ML ML IV PRN (11:19)
[2018-08-21] MEDS ORDERED: NALOXONE HCL 0.4 MG/ML VIAL IV PRN (11:19)
[2018-08-21] MEDS ORDERED: IPRATROPIUM/ALBUTEROL 3 ML AMPUL.NEB NEB PRN (11:19)
[2018-08-21] MEDS ORDERED: LACTATED RINGERS 250 ML IV PRN (11:19)
[2018-08-21] MEDS ORDERED: ONDANSETRON 4 MG/2 ML VIAL IV PRN (11:19)
[2018-08-21] MEDS ORDERED: MEPERIDINE 25 MG/ML SYRINGE IV PRN (11:19)
[2018-08-21] MEDS ORDERED: diphenhydrAMINE 50 MG/ML VIAL IV PRN (11:19)
[2018-08-21] MEDS ORDERED: ACETAMINOPHEN 1,000 MG/100 ML BOTTLE IV ONE (11:19)
[2018-08-21] MEDS ORDERED: HYDROmorphone 2 MG/ML VIAL IV PRN (11:19)
[2018-08-21] MEDS ORDERED: LACTATED RINGERS 1,000 ML IV SCH (11:30)
--- NOTE | 2018-08-21 12:05 | Brief Operative Note ---
Date of procedure: 08/21/18 Pre-op diagnosis: wound infection with fascial necrosis Post-op diagnosis: other (wound infection with fascial necrosis) Procedure: surgical debridement of wound with wound vac placement (15x6x2.5 cm) Grafts/Implants: No Anesthesia: GLMA Findings: partial thickness necrosis of muscle and fascia in upper 1/2 of incision with some limited full thickness necrosis in area about 5x3.5 cm Complications: none Surgeon: Torito Stephen Estimated blood loss (cc): 15 Specimens Removed/Pathology: none sent Condition: stable Disposition: PACU
[2018-08-21] MEDS: fentaNYL 100 MCG/2 ML VIAL IV PRN ×4 (12:14→12:20)
[2018-08-21] MEDS: BUTALB/ACETAMINOPHEN/CAFFEINE 1 TABLET PO PRN ×2 (15:25→21:32)
[2018-08-22] MEDS: MAGNESIUM HYDROXIDE 30 ML ORAL.SUSP PO PRN ×2 (00:13→10:21)
[2018-08-22] MEDS: HYDROmorphone 2 MG/ML VIAL IV PRN ×3 (01:10→09:43)
[2018-08-22] MEDS: HYDROcodone/APAP 5/325MG TABLET PO PRN (05:22)
[2018-08-22] MEDS: metroNIDAZOLE 500 MG/100 ML BAG IV SCH ×2 (05:44→15:55)
[2018-08-22] MEDS: ONDANSETRON 4 MG/2 ML VIAL IV PRN (09:42)
[2018-08-22] MEDS: HYDROcodone/APAP 10/325MG TABLET PO PRN ×2 (09:43→14:46)
[2018-08-22] MEDS ORDERED: CIPROFLOXACIN 500 MG TABLET PO SCH (09:59)
[2018-08-22] MEDS: CIPROFLOXACIN 400 MG/200 ML BAG IV SCH (10:38)
[2018-08-22] MEDS: 0.9 % SODIUM CHLORIDE 10 ML SYRINGE IV SCH (10:38)
--- NOTE | 2018-08-22 12:41 | Discharge Summary ---
Providers - Providers Patient information: Note initiated : 08/22/18 at 12:37 pm Service Date, if different from initiated Date: [] Patient: Marie Arredondo 53 y/o F admitted on 08/17/18 for Appy infection. Chief Complaint: [] Date of admission: 08/17/18 Discharge date: 08/22/18 Attending physician: Torito Stephen Hospitalization Hospital course: 53-year-old female who is status post open appendectomy for perforated appendix with pelvic abscess. 3 days post discharge. She represented with purulent drainage from her incision. The incision was explored and she was found to have a large abscess cavity of the entire incision. There was some fat and fascial necrosis which was debrided. The suture line was still intact. Her wound was treated open with Aquasol AG gauze changes. She was re-debrided on 21 August the wound base was relatively clean with about 80% early granulations. There was some necrosis of the superficial fascia and muscle, which was sharply debrided. Wound VAC was placed. The patient has done well. Based on cultures. She is discharged home on ciprofloxacin and metronidazole and will continue this for 2 weeks. She will have home health change her wound VAC twice weekly and I will see her in 3 weeks. Discharge diagnosis: postoperative wound infection Secondary discharge diagnosis: Postoperative perforated appendix with abscess Reason for admission: wound infection Procedures: Surgical debridement, incision and drainage of abscess on august and August Pertinent studies/significant findings: None Complications: None Exam Temp Pulse Resp BP Pulse Ox 97.9 F 81 16 112/71 91 08/22/18 11:49 08/22/18 11:49 08/22/18 11:49 08/22/18 11:49 08/22/18 11:49 - General physical appearance well developed, well nourished, no distress - Eyes PERRL, normal ocular movement - ENT normal pinna, normal nares, normal mucosa, no hearing loss, no congestion - Head Head exam IM: Present: atraumatic, normocephalic - Neck no masses, no bruits, trachea midline, no lymphadenopathy, no venous distension - Cardiovascular Cardiovascular exam IM: Present: normal rate and rhythm - Respiratory normal expansion, normal respiratory effort, clear to percussion, clear to auscultation - Abdomen Abdomen: Present: soft, tender (mild tenderness around incision), bowel sounds Hernia: Present: none - Genitourinary Present: normal external genitalia - Integumentary Present: no rash, no growths, no abnormal pigmentation - Neurologic Present: normal coordination, normal sensation - Musculoskeletal Present: normal gait, normal posture - Psychiatric Present: oriented to time, oriented to person, oriented to place, speech is normal, memory intact Discharge Plan - Patient/Caregiver Discharge Instructions Activity: increase activity as tolerated Diet: Regular Diet Additional Instructions: Home health evaluation on Mondays and for wound VAC change. Follow-up in the office on September 04 Prescriptions: Ciprofloxacin [Cipro] 500 mg PO BID #30 tab metroNIDAZOLE [Metronidazole] 500 mg PO Q8 #40 tab Ondansetron HCl [Zofran] 4 mg PO Q4-6H PRN #60 tab PRN Reason: Nausea And Vomiting - Follow up Plan Follow up with: Rufus Arellano MD [Primary Care Provider] - Disposition: Home Health Service Prognosis: Good Rehab Potential: Good I certify that the patient requires SNF services.: No Overall status at discharge: patient is progressing back to baseline Pending Studies Resuscitation Status Full Code Diet Regular Diet Start Fri 5 1251 Acetaminophen/Butalbital/Caffeine (Fioricet) 1 - 2 tab PO Q4HP PRN PRN Reason: Headache Last Admin: 08/21/18 21:32 Dose: 1 tab Documented by: Admin: 08/21/18 15:25 Dose: 1 tab Documented by: DALTON Hydrocodone Bitart/Acetaminophen ([place] 10/325mg) 1 tab PO Q4HP PRN PRN Reason: PAIN LEVEL 3-6 Last Admin: 08/22/18 09:43 Dose: 1 tab Documented by: DALTON Ciprofloxacin (Cipro) 500 mg PO BID DANIKA; Protocol Last Admin: 08/22/18 10:20 Dose: 500 mg Documented by: NEVIN Hydromorphone HCl (Dilaudid) 1 mg IV Q2HP PRN PRN Reason: PAIN LEVEL > 6 Last Admin: 08/22/18 09:43 Dose: 1 mg Documented by: Admin: 08/22/18 05:21 Dose: 1 mg Documented by: Admin: 08/22/18 01:10 Dose: 1 mg Documented by: Admin: 08/21/18 21:31 Dose: 1 mg Documented by: Admin: 08/21/18 18:39 Dose: 1 mg Documented by: Admin: 08/21/18 16:22 Dose: 1 mg Documented by: Admin: 08/21/18 13:04 Dose: 1 mg Documented by: MISAEL Metronidazole (Flagyl) 500 mg in 100 mls @ 100 mls/hr IV Q6H DANIKA; Protocol Last Admin: 08/22/18 05:44 Dose: 100 mls/hr Documented by: Infusion: 08/22/18 05:03 Dose: 0 mls/hr Documented by: Admin: 08/21/18 23:55 Dose: 100 mls/hr Documented by: Infusion: 08/21/18 19:48 Dose: 0 mls/hr Documented by: Admin: 08/21/18 17:57 Dose: 100 mls/hr Documented by: Infusion: 08/21/18 15:34 Dose: 0 mls/hr Documented by: Admin: 08/21/18 13:16 Dose: 100 mls/hr Documented by: MISAEL Magnesium Hydroxide (Milk Of Magnesia) 30 ml PO BIDP PRN PRN Reason: Constipation Last Admin: 08/22/18 10:21 Dose: 30 ml Documented by: Admin: 08/22/18 00:13 Dose: 30 ml Documented by: LEONA Ondansetron HCl (Zofran) 4 mg IV Q4-6HP PRN PRN Reason: Nausea And Vomiting Last Admin: 08/22/18 09:42 Dose: 4 mg Documented by: Admin: 08/21/18 13:04 Dose: 4 mg Documented by: MISAEL Sodium Chloride (Saline Flush) 10 ml IV Q12 DANIKA Last Admin: 08/22/18 10:38 Dose: Not Given Documented by: [email or web address] Admin: 08/21/18 21:20 Dose: 10 ml Documented by: LEONA Shift Summary 08/22/18 05:48 Shift Summary by Marjorie Lane AA&Ox4; returned from surgery yesterday early afternoon after incision and drainage with woundvac placement set to 125mmHg to medial abdomen, ASHLEY no longer present; dressing/suction CDI; medicated for headache and abdominal pain x2 [place], x2 IV dilaudid; x1 PO Fioricet; did not use RUE midline site as shoulder is tender with flushing, awaiting orders to D/C it. Using left wrist peripheral site for intermittent IV antibiotics; up to BR w/ FWW and SBA; possibly home w/ tomorrow. Initialized on 08/22/18 05:48 - END OF NOTE
--- NOTE | 2018-08-25 15:15 | Operative Note ---
DATE OF OPERATION: 08/21/2018 PREOPERATIVE DIAGNOSIS: Wound infection with fascial necrosis. POSTOPERATIVE DIAGNOSIS: Wound infection with fascial necrosis. PROCEDURE: Excisional surgical debridement of wound with wound V.A.C. placement. Wound measurement is 15 x 6 x 2.5 cm. FINDINGS: Partial thickness necrosis of muscle and fascia in the upper one-half of the incision with some limited full thickness necrosis in an area measuring 5 x 3 cm. DESCRIPTION OF PROCEDURE: Under general anesthesia, the patient's wound was prepped and draped in a sterile field. The wound cavity was brushed vigorously with a chlorhexidine-impregnated scrub brush. There were some developing granulations which appeared to be healthy. The wound measured 15 x 6 x 2.5 cm. There was minimal undermining and no tunneling. There was micah necrosis of the muscle and fascia in the upper one-half of the incision. Partial thickness of the muscle and fascia was excised using Metzenbaum scissors. Some of #1 Prolene that had been previously placed had to be tightened so it was incised and retied to accommodate the fascia to try to prevent major herniation. There was an area measuring about 5 x 4 cm that showed full thickness necrosis and it extended down to what appeared to be omentum. The omentum was left in place. The necrosis did not involve the omentum. Further irrigation was carried out and the wound was reinspected. It appeared to be healthy. The wound was lightly padded and absorbed with surgical sponges. Sponge counts were verified. The base of the wound was covered with white foam and this was covered with restrepo foam. A large adherent dressing was placed and suction was placed at 125 mmHg continuous. There was a complete seal with adequate partial closure of the entire incision. The patient tolerated the procedure well. She was awakened and taken to the postanesthetic care unit in stable, satisfactory condition. LCS:phan Job ID: [id number] Doc ID: [id number] Torito Stephen M.D.
== END 2018-08-22 15:45 | disposition home health service (06) | DRG 856 ==
LOC: ED 20:52 → MEDSUR 20:52
PROVIDERS: ADMIT Family Medicine Adult Medicine; ATTEND Family Medicine Adult Medicine
PROC: IDWOUND (2018-08-17 15:19)

== ENCOUNTER 2019-03-11 09:14 | Observation (INO) ==
[2019-03-11] MEDS ORDERED: IOPAMIDOL 100 ML BOTTLE IV ONE (09:15)
[2019-03-11] MEDS ORDERED: ONDANSETRON 4 MG/2 ML VIAL IV ONE (09:46)
[2019-03-11] MEDS ORDERED: 0.9 % SODIUM CHLORIDE 1,000 ML IV ONE (10:04)
--- NOTE | 2019-03-11 10:05 | Emergency Department Note ---
Abdominal Pain HPI - General Chief Complaint: Abdominal Pain Stated Complaint: abdominal pain Time Seen by Provider: 03/11/19 09:53 Source: patient Mode of arrival: ambulatory Limitations: no limitations - History of Present Illness HPI Narrative: 53-year-old female with a 3-1/2-hour history of severe belly pain nausea vomiting. Does not think she had a fever. No trouble breathing. History of previous open appendectomy for a burst appendix. Subsequent complication of hernia with wound VAC. This surgery was approximately [address] Stephen - Related Data Home Medications Medication Instructions Recorded Confirmed immmune booster PO 02/09/19 03/10/19 Previous Rx's Medication Instructions Recorded methocarbamol 750 mg tablet 750 mg PO TID PRN #20 tab 02/18/19 galcanezumab-gnlm 120 mg/mL 120 mg SUB-Q QMONTH #1 ml 02/25/19 subcutaneous pen injector methylprednisolone 4 mg tablets in See Rx Instructions PO PER PKG DIR 03/10/19 a dose pack #21 tab Allergies Allergy/AdvReac Type Severity Reaction Status Date / Time No Known Drug Allergies Allergy Verified 03/10/19 15:22 Review of Systems All systems ED: reviewed and negative except as stated. Abdominal Pain PMH - Past Medical History Attestation: Yes: The following information was validated with the patient. [facility] Narrative: Family History (Last Reviewed 02/09/19 @ 10:53 by Katrina Willis PA-C) none listed Asthma Malignant neoplasm of colon father History of coronary artery bypass surgery Diabetes mellitus mother Diabetes mellitus Malignant neoplasm of pancreas Medical History (Last Reviewed 02/09/19 @ 10:53 by Katrina Willis PA-C) Acute frontal sinusitis (Acute) Acute bronchitis (Acute) Polyarthralgia (Acute) Myalgia (Acute) MICHAEL positive (Acute) Vitamin B12 deficiency (Chronic) Osteoarthritis (Chronic) Morbid obesity (Acute) Gastroesophageal reflux (Chronic) Dysmetabolic syndrome X (Chronic) Benign neoplasm of colon (Chronic) Past Surgical History (Last Reviewed 02/09/19 @ 10:53 by Katrina Willis PA-C) Hx of plastic surgery (Acute) History of loop electrical excision procedure (LEEP) (Acute) Hx of gastric bypass (Acute) Hx of section (Acute) Hx of breast augmentation (Acute) History of appendectomy (Acute) Medical history: Reports: GERD - Social History Smoking status: Never smoker Physical Exam Overweight female some distress secondary to belly pain. Normocephalic atraumatic. Conjunctive are clear nonicteric. No nasal discharge or congestion. Oropharynx pink moist. Neck is supple without lymphadenopathy or thyromegaly. Heart is regular rate and rhythm no murmur appreciated. Lungs are clear to auscultation bilaterally without wheezes rales rhonchi or respiratory distress. Abdomen is soft diffusely tender but worse over the area of her previous scar and hernia which is mid lower abdomen-inferior to the umbilicus. There is a 1 cm so area of red scab but I do not see any other new findings here. No pedal edema. Alert oriented Limitations: no limitations Course Vital Signs Temperature 97.7 F 03/11/19 09:15 Pulse Rate 87 03/11/19 09:15 Respiratory Rate 20 03/11/19 09:15 Blood Pressure 147/91 03/11/19 09:15 Pulse Oximetry (%) 100 03/11/19 09:15 Temperature 97.7 F 03/11/19 09:15 Pulse Rate 87 03/11/19 13:05 Respiratory Rate 20 03/11/19 09:15 Blood Pressure 127/80 03/11/19 13:05 Pulse Oximetry (%) 99 03/11/19 13:05 Abdominal Pain - Lab Data Lab results reviewed: Yes I reviewed the patient's lab results. Result diagrams: 03/11/19 Unknown 03/11/19 Unknown Lab Results 03/11/19 03/11/19 03/11/19 Range/Units 10:23 Unknown Unknown WBC 5.4 (4.5-11.0) K/mcL RBC 4.59 (4.00-5.20) M/mcL Hgb 11.9 L (12.0-15.0) g/dL Hct 37.1 (36.0-48.0) % MCV 80.9 (80.0-100.0) fL MCH 25.9 L (26.0-34.0) pg MCHC 32.0 (31.0-36.0) g/dL RDW 16.1 H (11.5-14.5) % Plt Count 318 (140-440) K/mcL MPV 7.4 (7.4-10.4) fL Gran % 66.7 (38.0-78.0) % Lymph % (Auto) 23.9 (15.5-49.0) % [place] % (Auto) 7.6 (1.0-12.0) % Eos % (Auto) 1.1 (0.0-7.0) % Baso % (Auto) 0.7 (0.0-2.0) % Gran # 3.6 (1.8-8.0) K/mcL Lymph # (Auto) 1.3 L (1.5-4.8) K/mcL [place] # (Auto) 0.4 (0.1-0.9) K/mcL Eos # (Auto) 0.1 (0.0-0.7) K/mcL Baso # (Auto) 0 (0.0-0.3) K/mcL Sodium 139 (133-145) mmol/L Potassium 3.9 (3.3-5.1) mmol/L Chloride 104 (96-108) mmol/L Carbon Dioxide 24 (22-30) mmol/L Anion Gap 11.0 (8-16) BUN 10 (6-20) mg/dl Creatinine 0.7 (0.6-1.1) mg/dl GFR Calculation 98 Glucose 113 H (70-105) mg/dL Calcium 8.9 (8.6-10.4) mg/dl Total Bilirubin 0.2 (0.0-1.0) mg/dL AST 16 (0-37) U/l ALT 17 (0-40) U/l Alkaline Phosphatase 95 (39-117) U/L Total Protein 7.2 (5.9-8.4) gm/dL Albumin 4.2 (3.2-5.2) gm/dL Globulin 3.0 (2.2-3.7) gm/dL Albumin/Globulin Ratio 1.4 (1.0-2.3) Urine Color Yellow Urine Appearance Clear Urine pH 7.0 (5.0-9.0) Ur Specific D[place]key 1.020 (1.000-1.035) Urine Protein Neg (NEG) mg/dL Urine Glucose (UA) Negative (NEG) mg/dL Urine Ketones Neg (NEG) mg/dL Urine Occult Blood Neg (<0.03) mg/dL Urine Nitrate Neg (NEG) Urine Bilirubin Neg (NEG) mg/dL Urine Urobilinogen Neg (NEG) mg/dL Ur Leukocyte Esterase Neg (NEG) /uL Urine RBC 1 (0-1) /hpf Urine WBC 1 (0-4) /hpf Ur Squamous Epith Cells 3 (0-4) /hpf Urine Bacteria 0 (0) /hpf Urine Mucus Few (0) /hpf Ur Culture Indicated? No Disposition Pt seen by [facility]/PA only: No Clinical Impression: Omental torsion Abdominal pain Qualifiers: Abdominal location: generalized Qualified Code(s): R10.84 - Generalized abdominal pain Summary: Laboratory pending. Get CT scan. Start IV fluids Zofran and Dilaudid for pain. Labs and vital signs are benign but CT scan shows omental torsion. Discussed case with Dr. Clovis Stephen, general surgeon. He agreed to accept the patient for further care and evaluation in the hospital. Disposition: Xfer As Inpt ([facility]) Condition: Fair Referrals: Rufus Arellano MD [Primary Care Provider] -
[2019-03-11 10:09] LABS: Basophils # (Auto) 0 K/mcL (0.0-0.3); Basophils % (Auto) 0.7 % (0.0-2.0); Eosinophils # (Auto) 0.1 K/mcL (0.0-0.7); Eosinophils % (Auto) 1.1 % (0.0-7.0); Granulocytes % (Auto) 66.7 % (38.0-78.0); Hematocrit 37.1 % (36.0-48.0); Hemoglobin 11.9 g/dL (12.0-15.0); Lymphocytes # (Auto) 1.3 K/mcL (1.5-4.8); Lymphocytes % (Auto) 23.9 % (15.5-49.0); Mean Cell Volume 80.9 fL (80.0-100.0); Mean Platelet Volume 7.4 fL (7.4-10.4); Monocytes # (Auto) 0.4 K/mcL (0.1-0.9); Monocytes % (Auto) 7.6 % (1.0-12.0); Platelet Count 318 K/mcL (140-440); RBC 4.59 M/mcL (4.00-5.20); Red Cell Distribution Width 16.1 % (11.5-14.5); WBC 5.4 K/mcL (4.5-11.0)
[2019-03-11] MEDS: HYDROmorphone 2 MG/ML VIAL IV PRN ×3 (10:38→13:05)
[2019-03-11 10:41] LABS: ALT/SGPT 17 U/l (0-40); AST/SGOT 16 U/l (0-37); Albumin 4.2 gm/dL (3.2-5.2); Albumin/Globulin Ratio 1.4 (1.0-2.3); Alkaline Phosphatase 95 U/L (39-117); Bilirubin,Total 0.2 mg/dL (0.0-1.0); Blood Urea Nitrogen 10 mg/dl (6-20); Calcium 8.9 mg/dl (8.6-10.4); Carbon Dioxide 24 mmol/L (22-30); Chloride 104 mmol/L (96-108); Glomerular Filtration Rate 98; Glucose 113 mg/dL (70-105)
[2019-03-11 11:25] LABS: Appearance,Urine CLEAR; Bacteria,Urine 0 /hpf (0); Bilirubin,Urine NEG (NEG); Color,Urine YELLOW; Culture Indicated,Urine NO; Glucose,Urine (UA) NEGATIVE (NEG); Ketones,Urine NEG (NEG); Leukocyte Esterase,Urine NEG /uL (NEG); Mucus,Urine FEW /hpf (0); Nitrate,Urine NEG (NEG); Protein,Urine NEG (NEG); Urine Blood NEG mg/dL (<0.03); Urine RBC 1 /hpf (0-1); Urine Squamous Epithelial Cell 3 /hpf (0-4); Urine WBC 1 /hpf (0-4); Urobilinogen,Urine NEG (NEG)
--- NOTE | 2019-03-11 12:12 | Cat Scan Report ---
CLINICAL INFORMATION: Severe abdominal pain. Previous open appendectomy on 08/09/2018 TECHNIQUE: Axial postcontrast enhanced images through the abdomen and pelvis. Sagittal and coronal reformatted images. COMPARISON: Previous preoperative CT scan dated 08/09/2018. Previous postoperative CT scan dated 08/16/2018. FINDINGS: There is an anterior abdominal wall hernia which is probably an incisional hernia. This is at the level of the umbilicus and cephalad to the umbilicus. Hernia defect measures 7.1 x 7.5 cm. There is herniated transverse colon. No bowel obstruction. No bowel ischemia. There is no fluid within the hernia sac. Transverse colon zepeda are not thickened. There is injection of mesenteric fat in the right lower quadrant and right lower abdomen. There are swirling vessels consistent with omental torsion and infarction. No free pelvic fluid. No pneumoperitoneum. No intra-abdominal abscess. Small bowel is negative. No evidence for volvulus. No mechanical small bowel obstruction. : Is negative. No diverticulitis. No detectable mass. There is no pneumoperitoneum. No biliary or portal venous gas. No pneumatosis. There is no intra-abdominal abscess. Lung bases are negative. No pleural fluid. No pericardial fluid. There is a small hiatal hernia. Negative liver. No focal intrahepatic abnormality. Liver contour is smooth. There are surgical clips in the gallbladder fossa. No dilated bile ducts. Negative pancreas. No pancreatic mass. No peripancreatic abnormality. Negative spleen. Normal enhancement of splenic and portal veins. Negative adrenal glands. Kidneys are negative. No solid or cystic mass. No hydronephrosis. Uterus is present. No adnexal mass. Abdominal aorta is negative. No abdominal aortic aneurysm. No retroperitoneal or mesenteric adenopathy. Degenerative disc disease lower lumbar spine. Severe degenerative disc disease at L3-4. Sacrum and pelvis are negative. Hips are negative. IMPRESSION: 1. Findings consistent with greater omental torsion and fat infarction 2. Umbilical and supraumbilical incisional hernia. Hernia contains transverse colon without obstruction 3. No intra-abdominal abscess Interpreted and Authenticated by: Sivakumar Georges 03/11/19
[2019-03-11] MEDS ORDERED: HYDROmorphone 2 MG/ML VIAL IV PRN ×2 (14:20→14:31)
[2019-03-11] MEDS ORDERED: PROMETHAZINE 25 MG/ML VIAL IV PRN (14:20)
[2019-03-11] MEDS ORDERED: ONDANSETRON 4 MG/2 ML VIAL IV PRN (14:31)
[2019-03-11] MEDS ORDERED: LORazepam 2 MG/ML VIAL IV PRN (14:33)
--- NOTE | 2019-03-11 14:38 | General Surg History&Physical ---
History of Present Illness Patient information: Note initiated : 03/11/19 at 2:35 pm Service Date, if different from initiated Date: [] Patient: Marie Arredondo a 53 y/o F admitted on for abdominal pain. Chief Complaint: [] HPI: Ms. Arredondo is a 53 year old F admitted for evaluation of severe abdominal pain with questionable mesenteric vascular swirling without obstruction. The patient has a history of open appendectomy for perforated appendix with abscess in July 2018. She developed major subcutaneous wound infection which was treated with multiple debridements and wound VAC treatment. Her wound finally healed and she has been relatively stable since that time. She was awakened about 600 this morning with severe pain across her entire abdomen nausea but no vomiting. Her last bowel movement and flatus was yesterday. She does complain of some abdominal distention. White count is normal and she is afebrile she does not have any tachycardia. CT of the abdomen does not otherwise show any acute abnormality that would suggest intestinal obstruction according to review with the radiologist. She has not had similar episodes in the past. She is admitted for observation and we will get lactate sedimentation rate today with follow-up tomorrow. If needed will also get small bowel follow-through. Review of Systems - Constitutional headache(s), malaise, weight gain - EENT Nose, mouth and throat: headache(s) - Cardiovascular diaphoresis, palpatations - Respiratory no cough, no dyspnea on exertion, no excessive phlegm production, no pain with cough - Gastrointestinal abdominal pain, bloating, cramping, nausea, no vomiting - Genitourinary Genitourinary: no urinary frequency, no urinary incontinence - Musculoskeletal arthralgias, stiffness - Integumentary no pruritus, no rash, no swelling - Neurological headache(s), radicular pain, syncope, no confusion, no convulsions, no dizziness - Psychiatric anxiety, depression - Endocrine no polydipsia, no polyphagia, no polyuria - Hematologic/Lymphatic no easy bleeding, no easy bruising, no lymphadenopathy - Allergic/Immunologic no tongue swelling, no throat swelling, no uticaria, no wheezing, no lip swelling Past History Past medical history: Gastroesophageal reflux disease History of acute appendicitis with perforation July 2009 History of postoperative wound infection August 2018 Morbid obesity Past surgical history: Abdominoplasty with breast augmentation and liposuction legs Gastric bypass 2004 Appendectomy July 2018 Past family history: : Neoplasm Diabetes mellitus Coronary artery disease Pancreatic carcinoma Past social history: Denies alcohol use Denies drug use Never smoker Medications and Allergies Home Medications Medication Instructions Recorded Confirmed Type immmune booster PO 02/09/19 03/10/19 History methocarbamol 750 mg tablet 750 mg PO TID PRN #20 tab 02/18/19 03/11/19 Rx galcanezumab-gnlm 120 mg/mL 120 mg SUB-Q QMONTH #1 ml 02/25/19 03/11/19 Rx subcutaneous pen injector methylprednisolone 4 mg tablets in See Rx Instructions PO PER PKG DIR 03/10/19 03/11/19 Rx a dose pack #21 tab Allergies Allergy/AdvReac Type Severity Reaction Status Date / Time No Known Drug Allergies Allergy Verified 03/10/19 15:22 Exam Temp Pulse Resp BP Pulse Ox 97.7 F 80 20 124/87 94 03/11/19 09:15 03/11/19 14:28 03/11/19 09:15 03/11/19 14:16 03/11/19 14:28 - General physical appearance well developed, well nourished, no distress, moderate distress, moderate pain, obese (morbid obesity) - Eyes PERRL, normal ocular movement - ENT normal pinna, normal nares, normal mucosa, no hearing loss, no congestion - Head Head exam IM: Present: atraumatic, normal inspection, normocephalic - Neck no masses, no bruits, trachea midline, no lymphadenopathy, no venous distension - Cardiovascular Cardiovascular exam IM: Present: normal rate and rhythm, RRR, +S1, +S2. Absent: JVD, tachycardia - Respiratory normal expansion, normal respiratory effort, clear to auscultation - Abdomen Abdomen: Present: soft, tender (mild tenderness in the midabdomen; active bowel sounds; midline incisional hernia without incarceration), bowel sounds Hernia: Present: none - Genitourinary Present: normal external genitalia - Integumentary Present: no rash, no growths, no abnormal pigmentation - Neurologic Present: normal coordination, normal sensation - Musculoskeletal Present: normal gait, normal posture - Psychiatric Present: oriented to time, oriented to person, oriented to place, speech is normal, memory intact Assessment and Plan (1) Abdominal pain Must considered the possibility of mesenteric vascular torsion though the vessels in the area of concern appear to be well opacified out to the bowel wall. There is no evidence of intestinal obstruction at this time. We'll get follow-up x-rays in the morning We'll possibly need to get a small bowel follow-through for more definitive evaluation. Status: Acute Qualifiers: Abdominal location: generalized Qualified Code(s): R10.84 - Generalized abdominal pain (2) Incisional hernia of anterior abdominal wall without obstruction or gangrene Currently is clinically stable at this time with no evidence of intestinal obstruction in the hernia sac Status: Acute (3) Morbid obesity Status: Acute
[2019-03-11] MEDS: 0.9 % SODIUM CHLORIDE 1,000 ML IV SCH ×2 (15:20→23:25)
[2019-03-11] MEDS: ENOXAPARIN 30 MG/0.3 ML SYRINGE SQ SCH (15:21)
[2019-03-11] MEDS: METOCLOPRAMIDE 10 MG/2 ML VIAL IV SCH ×2 (18:11→23:25)
[2019-03-11] MEDS ORDERED: traZODone HCL 50 MG TABLET PO PRN (21:00)
[2019-03-11] MEDS: FAMOTIDINE/PF 20 MG/2 ML VIAL IV SCH (22:05)
[2019-03-11] MEDS: 0.9 % SODIUM CHLORIDE 10 ML SYRINGE IV SCH (22:06)
[2019-03-12 05:23] LABS: Basophils # (Auto) 0 K/mcL (0.0-0.3); Basophils % (Auto) 0.5 % (0.0-2.0); Eosinophils # (Auto) 0 K/mcL (0.0-0.7); Eosinophils % (Auto) 0.3 % (0.0-7.0); Granulocytes % (Auto) 71.1 % (38.0-78.0); Hematocrit 32.2 % (36.0-48.0); Hemoglobin 10.4 g/dL (12.0-15.0); Lymphocytes # (Auto) 1.1 K/mcL (1.5-4.8); Mean Cell Volume 81.1 fL (80.0-100.0); Mean Corpuscular HGB Conc 32.2 g/dL (31.0-36.0); Mean Platelet Volume 7.5 fL (7.4-10.4); Monocytes # (Auto) 0.5 K/mcL (0.1-0.9); Monocytes % (Auto) 9.1 % (1.0-12.0); Platelet Count 264 K/mcL (140-440); RBC 3.97 M/mcL (4.00-5.20); Red Cell Distribution Width 16.1 % (11.5-14.5); WBC 5.8 K/mcL (4.5-11.0)
[2019-03-12] MEDS: 0.9 % SODIUM CHLORIDE 10 ML SYRINGE IV SCH ×3 (05:53→21:27)
[2019-03-12] MEDS: METOCLOPRAMIDE 10 MG/2 ML VIAL IV SCH ×4 (05:53→23:12)
[2019-03-12 05:57] LABS: ALT/SGPT 14 U/l (0-40); AST/SGOT 13 U/l (0-37); Albumin 3.6 gm/dL (3.2-5.2); Albumin/Globulin Ratio 1.6 (1.0-2.3); Alkaline Phosphatase 77 U/L (39-117); Bilirubin,Direct < 0.2 mg/dL (0.0-0.3); Bilirubin,Total 0.3 mg/dL (0.0-1.0); Blood Urea Nitrogen 5 mg/dl (6-20); Calcium 8.7 mg/dl (8.6-10.4); Carbon Dioxide 22 mmol/L (22-30); Chloride 108 mmol/L (96-108); Globulin 2.3 gm/dL (2.2-3.7); Glomerular Filtration Rate 109; Glucose 123 mg/dL (70-105); Lactate Dehydrogenase 171 U/L (94-250); Phosphorous 2.1 mg/dL (2.7-4.5); Triglycerides 153 mg/dl (<150); Uric Acid 4.1 mg/dL (2.5-8.0)
--- NOTE | 2019-03-12 06:58 | XRay Report ---
CLINICAL INFORMATION: Previous abdominal surgery. History of mesenteric torsion and fat infarction TECHNIQUE: Supine abdomen COMPARISON: Previous CT scan dated 03/11/2019 FINDINGS: Bowel gas pattern is unremarkable. No significantly dilated gas-filled small bowel. Contrast material has passed from small bowel to the colon. No evidence for mechanical small bowel obstruction. There is no pneumatosis. No focal abnormality IMPRESSION: 1. Unremarkable bowel gas pattern. 2. Oral contrast material has passed from small bowel to the colon Interpreted and Authenticated by: Sivakumar Georges 03/12/19
[2019-03-12] MEDS: FAMOTIDINE/PF 20 MG/2 ML VIAL IV SCH ×2 (08:29→21:27)
[2019-03-12] MEDS: 0.9 % SODIUM CHLORIDE 1,000 ML IV SCH ×2 (08:29→14:30)
[2019-03-12] MEDS: ENOXAPARIN 30 MG/0.3 ML SYRINGE SQ SCH (08:29)
[2019-03-12] MEDS ORDERED: METOCLOPRAMIDE 10 MG/2 ML VIAL IV SCH (12:00)
--- NOTE | 2019-03-12 12:25 | General Surgery Progress Note ---
Subjective Patient reports: feels better, pain is less, tolerating liquids well, flatus, bowel movement, afebrile Narrative: Note initiated : 03/12/19 at 12:23 pm Service Date, if different from initiated Date: [] Patient: Marie Arredondo 54 y/o F admitted on 03/11/19 for abdominal pain. Chief Complaint: [patient states that she is feeling much better. She no longer has the pain that she had last evening. Her abdomen is less distended. She denies nausea. She has had flatus and has had bowel movements. White blood count 5.8, hemoglobin 10.4, sedimentation rate 18, lactic acid 1.] Objective Temp Pulse Resp BP Pulse Ox 97.1 F 91 H 16 137/83 97 03/12/19 08:00 03/12/19 08:00 03/12/19 08:00 03/12/19 08:00 03/12/19 08:00 - Additional Data Intake & Output - Last 24 hours: Intake & Output 03/10/19 03/11/19 03/12/19 03/13/19 05:59 05:59 05:59 05:59 Intake Total 2140 1000 Output Total 1600 400 Balance 540 600 Weight 340 lb 11.2 oz - General physical appearance well developed, well nourished, no distress - Eyes PERRL, normal ocular movement - ENT normal pinna, normal nares, normal mucosa, no hearing loss, no congestion - Neck no masses, no bruits, trachea midline, no lymphadenopathy, no venous distension - Respiratory normal expansion, normal respiratory effort, clear to auscultation - Cardiovascular Cardiovascular exam: Present: normal rate and rhythm, RRR, +S1, +S2. Absent: JVD, tachycardia - Abdomen non tender (no tenderness in the midabdomen; hernia is distended but not as prominent as on last evening; she has good active bowel sounds), bowel sounds (present), surgical scars (none), masses (none) - Integumentary no rash, no growths, no abnormal pigmentation - Neurologic normal coordination, normal sensation - Musculoskeletal normal gait, normal posture - Psychiatric oriented to time, oriented to person, oriented to place, speech is normal, memory intact - Labs 03/12/19 04:18 03/12/19 04:18 Diabetes panel 03/12/19 Range/Units 04:18 Sodium 140 (133-145) mmol/L Potassium 3.8 (3.3-5.1) mmol/L Chloride 108 (96-108) mmol/L Carbon Dioxide 22 (22-30) mmol/L BUN 5 L (6-20) mg/dl Creatinine 0.5 L (0.6-1.1) mg/dl Glucose 123 H (70-105) mg/dL Calcium 8.7 (8.6-10.4) mg/dl AST 13 (0-37) U/l ALT 14 (0-40) U/l Alkaline Phosphatase 77 (39-117) U/L Total Protein 5.9 (5.9-8.4) gm/dL Albumin 3.6 (3.2-5.2) gm/dL Triglycerides 153 H (<150) mg/dl Calcium panel 03/12/19 Range/Units 04:18 Calcium 8.7 (8.6-10.4) mg/dl Phosphorus 2.1 L (2.7-4.5) mg/dL Albumin 3.6 (3.2-5.2) gm/dL Pituitary panel 03/12/19 Range/Units 04:18 Sodium 140 (133-145) mmol/L Potassium 3.8 (3.3-5.1) mmol/L Chloride 108 (96-108) mmol/L Carbon Dioxide 22 (22-30) mmol/L BUN 5 L (6-20) mg/dl Creatinine 0.5 L (0.6-1.1) mg/dl Glucose 123 H (70-105) mg/dL Calcium 8.7 (8.6-10.4) mg/dl Adrenal panel 03/12/19 Range/Units 04:18 Sodium 140 (133-145) mmol/L Potassium 3.8 (3.3-5.1) mmol/L Chloride 108 (96-108) mmol/L Carbon Dioxide 22 (22-30) mmol/L BUN 5 L (6-20) mg/dl Creatinine 0.5 L (0.6-1.1) mg/dl Glucose 123 H (70-105) mg/dL Calcium 8.7 (8.6-10.4) mg/dl Total Bilirubin 0.3 (0.0-1.0) mg/dL AST 13 (0-37) U/l ALT 14 (0-40) U/l Alkaline Phosphatase 77 (39-117) U/L Total Protein 5.9 (5.9-8.4) gm/dL Albumin 3.6 (3.2-5.2) gm/dL Assessment and Plan (1) Abdominal pain Status: Acute Assessment and plan: Clinically improved without evidence of progression. No evidence of intestinal ischemia Current Visit: Yes (2) Incisional hernia of anterior abdominal wall without obstruction or gangrene Status: Chronic Assessment and plan: Clinically stable without change Current Visit: No (3) Morbid obesity Status: Acute Current Visit: No - Time Spent With Patient Total time spent is greater than 50% in coordination of care (as documented) at patient's floor/unit and/or counseling patient:
[2019-03-13] MEDS: 0.9 % SODIUM CHLORIDE 10 ML SYRINGE IV SCH (05:40)
[2019-03-13] MEDS: METOCLOPRAMIDE 10 MG/2 ML VIAL IV SCH ×2 (05:40→13:47)
[2019-03-13 05:55] LABS: Basophils # (Auto) 0 K/mcL (0.0-0.3); Basophils % (Auto) 0.8 % (0.0-2.0); Eosinophils # (Auto) 0 K/mcL (0.0-0.7); Eosinophils % (Auto) 0.6 % (0.0-7.0); Granulocytes % (Auto) 65.2 % (38.0-78.0); Hematocrit 34.7 % (36.0-48.0); Hemoglobin 11.2 g/dL (12.0-15.0); Lymphocytes # (Auto) 1.2 K/mcL (1.5-4.8); Lymphocytes % (Auto) 23.2 % (15.5-49.0); Mean Cell Volume 80.8 fL (80.0-100.0); Mean Corpuscular HGB Conc 32.3 g/dL (31.0-36.0); Mean Platelet Volume 7.7 fL (7.4-10.4); Monocytes # (Auto) 0.5 K/mcL (0.1-0.9); Monocytes % (Auto) 10.2 % (1.0-12.0); Platelet Count 305 K/mcL (140-440); RBC 4.29 M/mcL (4.00-5.20); Red Cell Distribution Width 16.5 % (11.5-14.5); WBC 5.4 K/mcL (4.5-11.0)
[2019-03-13 06:14] LABS: ALT/SGPT 18 U/l (0-40); AST/SGOT 21 U/l (0-37); Albumin/Globulin Ratio 1.4 (1.0-2.3); Alkaline Phosphatase 86 U/L (39-117); Bilirubin,Direct < 0.2 mg/dL (0.0-0.3); Bilirubin,Total 0.2 mg/dL (0.0-1.0); Blood Urea Nitrogen 2 mg/dl (6-20); Carbon Dioxide 23 mmol/L (22-30); Chloride 106 mmol/L (96-108); Globulin 2.8 gm/dL (2.2-3.7); Glomerular Filtration Rate 103; Glucose 125 mg/dL (70-105); Lactate Dehydrogenase 218 U/L (94-250); Phosphorous 2.4 mg/dL (2.7-4.5); Triglycerides 122 mg/dl (<150); Uric Acid 4.6 mg/dL (2.5-8.0)
[2019-03-13] MEDS: FAMOTIDINE/PF 20 MG/2 ML VIAL IV SCH (10:39)
[2019-03-13] MEDS: ENOXAPARIN 30 MG/0.3 ML SYRINGE SQ SCH (10:40)
--- NOTE | 2019-03-13 10:53 | Discharge Summary ---
Providers - Providers Patient information: Note initiated : 03/13/19 at 10:49 am Service Date, if different from initiated Date: [] Patient: Marie Arredondo 54 y/o F admitted on 03/11/19 for abdominal pain. Chief Complaint: [] Date of admission: 03/11/19 Discharge date: 03/13/19 Attending physician: Torito Stephen Hospitalization Hospital Course: 53-year-old female admitted with severe abdominal pain. Patient complains of acute onset of severe pain at all 600 on the morning of admission, followed by nausea but no vomiting. Exam was unremarkable except for mild right-sided tenderness. Her white blood count and lactate were normal and she was afebrile. CT of the abdomen suggested swirling pattern of the vascular mesentery in the right lower quadrant, but no evidence of intestinal obstruction. Patient was admitted and monitored. She was given metoclopramide. She started having flatus and bowel movements. Follow-up on yesterday showed continued afebrile state with normal white blood count and normal lactate. Her diet was advanced and she is tolerating well. She does not have abdominal pain at this time. White blood count today is 5.4. Her lactate is 1.6. She is passing flatus and having regular bowel movements. She denies nausea. She denies pain. Exam is totally benign and she is stable for discharge home. Discharge diagnosis: acute abdominal pain Secondary discharge diagnosis: Incisional hernia. Gastroesophageal reflux disease. Morbid obesity Reason for admission: recurrent abdominal pain with nausea Procedures: None Pertinent studies/significant findings: CT of abdomen and pelvis with IV contrast Complications: None Exam Temp Pulse Resp BP Pulse Ox 98.0 F 85 16 129/84 96 03/13/19 04:00 03/13/19 04:00 03/13/19 04:00 03/13/19 04:00 03/13/19 04:00 - General physical appearance well developed, well nourished, no distress - Eyes PERRL, normal ocular movement - ENT normal pinna, normal nares, normal mucosa, no hearing loss, no congestion - Head Head exam IM: Present: atraumatic, normocephalic - Neck no masses, no bruits, trachea midline, no lymphadenopathy, no venous distension - Cardiovascular Cardiovascular exam IM: Present: normal rate and rhythm - Respiratory normal expansion, normal respiratory effort, clear to auscultation - Abdomen Abdomen: Present: soft, non tender (no tenderness or guarding; good active bowel sounds), bowel sounds, surgical scars (incisional hernia without tenderness or mass), distended Hernia: Present: none - Genitourinary Present: normal external genitalia - Integumentary Present: no rash, no growths, no abnormal pigmentation - Neurologic Present: normal coordination, normal sensation - Musculoskeletal Present: normal gait, normal posture - Psychiatric Present: oriented to time, oriented to person, oriented to place, speech is normal, memory intact Discharge Plan - Patient/Caregiver Discharge Instructions Activity: increase activity as tolerated Diet: Regular Diet Additional Instructions: No change in diet or prescriptions - Follow up Plan Follow up with: Rufus Arellano MD [Primary Care Provider] - Disposition: Home, Self-Care Prognosis: Good Rehab Potential: Good I certify that the patient requires SNF services.: No Overall status at discharge: patient is back to baseline Pending Studies Resuscitation Status Full Code Diet Regular Diet Start Sat Mar 13 0500 Enoxaparin Sodium (Lovenox) 30 mg SQ DAILY [facility] [place] Last Admin: 03/13/19 10:40 Dose: Not Given Documented by: [email or web address] Admin: 03/12/19 08:29 Dose: 30 mg Documented by: [email or web address] Admin: 03/11/19 15:21 Dose: 30 mg Documented by: [email or web address] Famotidine (Pepcid) 20 mg IV Q12 [facility] [place] Last Admin: 03/13/19 10:39 Dose: 20 mg Documented by: [email or web address] Admin: 03/12/19 21:27 Dose: 20 mg Documented by: Admin: 03/12/19 08:29 Dose: 20 mg Documented by: [email or web address] Admin: 03/11/19 22:05 Dose: 20 mg Documented by: GALEN Metoclopramide HCl (Reglan) 10 mg IV Q6 [facility] [place] Last Admin: 03/13/19 05:40 Dose: 10 mg Documented by: Admin: 03/12/19 23:12 Dose: 10 mg Documented by: Admin: 03/12/19 17:09 Dose: 10 mg Documented by: Admin: 03/12/19 12:23 Dose: 10 mg Documented by: [email or web address] Admin: 03/12/19 05:53 Dose: 10 mg Documented by: Admin: 03/11/19 23:25 Dose: 10 mg Documented by: Admin: 03/11/19 18:11 Dose: 10 mg Documented by: [email or web address] Ondansetron HCl (Zofran) 4 mg IV Q4HP PRN PRN Reason: Nausea And Vomiting Last Admin: 03/11/19 15:19 Dose: 4 mg Documented by: [email or web address] Sodium Chloride (Saline Flush) 10 ml IV Q8 DANIKA Last Admin: 03/13/19 05:40 Dose: 10 ml Documented by: Admin: 03/12/19 21:27 Dose: 10 ml Documented by: Admin: 03/12/19 15:09 Dose: Not Given Documented by: [email or web address] Admin: 03/12/19 05:53 Dose: Not Given Documented by: Admin: 03/11/19 22:06 Dose: 10 ml Documented by: GALEN Shift Summary 03/13/19 04:57 Shift Summary by Tabby Trejo A&O x4. Pt has slept on and off this shift, but not very well. She is up ad yina in room and ambulates hallways with . No PRN medications given this shift. No complaints of pain or nausea. No BM this shift. IV to R AC is SL and patent but can be positional. VSS on RA. K-pad in room for neck pain PRN - has not used it this shift. Active bowel tones. Diet advanced to regular for breakfast. Hopes to D/C today. Will update at bedside. Initialized on 03/13/19 04:57 - END OF NOTE
== END 2019-03-13 14:00 | disposition home or self-care (01) | DRG 392 ==
LOC: ED 09:14 → INTOOBSV 14:48 → MEDSUR 14:48
PROVIDERS: ADMIT Family Medicine Adult Medicine; ATTEND Family Medicine Adult Medicine